=== PATIENT | male | born 1980 | race Caucasian/White ===

== ENCOUNTER 2019-10-09 17:32 | Emergency (ER) | payer SELFPAY ==
[2019-10-09 18:01] VITALS: BP 128/90; PULSE 88; RESP 18; TEMP 36.6; O2SAT 97; BMI 28.7
--- NOTE | 2019-10-09 19:38 | W.ED.GENADLT ---
HPI - General Adult General: Chief complaint: General Medical Stated complaint: chills, sore throat, sinus tenderness Time Seen by Provider: 10/09/19 19:13 History of Present Illness: HPI narrative: Sore throat sinus pressure and congestion. MD complaint: uri Onset (ago): day(s) (1) Associated symptoms: Reports no associated symptoms; Deny chest pain, dyspnea, headache(s), nausea, rash or vomiting Treatments prior to arrival: none Review of Systems Const: Denies: fever, chills or body aches Eyes: Denies: change in vision or blurry vision ENMT: Reports: throat pain and nasal congestion Card: Denies: chest pain or shortness of breath on exertion Resp: Denies: shortness of breath, productive cough or non-productive cough GI: Denies: abdominal pain, nausea or vomiting : Denies: difficulty urinating Musc: Denies: extremity pain Skin/Breast: Denies: rash Neuro: Denies: headache Psych: Denies: anxiety or depression Celso/Lymph: Denies: easy bruising PFSH ED PFSH: Social History Smoking and tobacco status: current every day smoker Physical Exam Const: COMMON NORMALS: no apparent distress, average body habitus and oriented x3 HENMT: COMMON NORMALS: normocephalic HEAD & SCALP: normal to inspection and normocephalic FACE & SINUS: sinus tenderness Eye: COMMON NORMALS: conjunctivae normal GENERAL EYE: normal appearance of both eyes CONJUNCTIVA: Yes conjunctivae normal Neck/C-Spine: COMMON NORMALS: no JVD Chest: COMMONS NORMALS: inspection of chest normal Resp: COMMON NORMALS: normal respiratory effort and clear to auscultation bilaterally AUSCULTATION: clear to auscultation bilaterally Cardio: COMMON NORMALS: no JVD, regular rate and regular rhythm RATE: regular rate RHYTHM: regular rhythm GI: COMMON NORMALS: normal to inspection, nondistended, normoactive bowel sounds Extremity: COMMON NORMALS: normal to inspection and full ROM Neuro: COMMON NORMALS: oriented x3 Course Vital Signs: Vital signs: Vital Signs Temperature 98 F 10/09/19 18:01 Pulse Rate 88 10/09/19 18:01 Respiratory Rate 18 10/09/19 18:01 Blood Pressure 128/90 10/09/19 18:01 Pulse Oximetry 97 02/15/20 18:01 Coding Level of Care Code ED Photographic Laboratory Technician for Pamela Childers
[2019-10-09 19:42] VITALS: BP 118/63; PULSE 80; RESP 18; TEMP 36.6; O2SAT 97
[2019-10-09 19:54] LABS: Influenza A by IFA Negative (Negative); Influenza B by IFA Negative (Negative)
[2019-10-09 19:56] LABS: Rapid Strep A Test Negative (Negative)
[2019-10-09 20:29] VITALS: BP 118/63; PULSE 80; RESP 16; TEMP 36.4; O2SAT 98
[2019-10-09] MEDS: amoxicillin 500 mg Capsule PO (20:29)
== END 2019-10-09 20:30 | disposition home or self-care (01) ==
PROVIDERS: Emergency Provider Nurse Practitioner Family; Family Provider Nurse Practitioner
DX: J02.9 Acute pharyngitis, unspecified (principal); R09.81 Nasal congestion; F17.200 Nicotine dependence, unspecified, uncomplicated
CPT/HCPCS: 87081; 87804; 87880; 99281; 99283

== ENCOUNTER 2020-03-21 17:29 | Emergency (ER) | payer SELFPAY ==
[2020-03-21 17:42] VITALS: BMI 28.7
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
[2020-03-21 18:05] LABS: Basophils % 0.4 %; Eosinophils # 0.3 10^3/uL (0.0-0.8); Eosinophils % 3.3 %; Hematocrit 47.5 % (42.0-52.0); Hemoglobin 15.8 g/dL (11.7-16.6); Lymphocytes # 2.7 10^3/uL (0.8-4.8); Lymphocytes % 33.6 %; Mean Corpuscular HGB Conc 33.3 g/dL (30.0-36.0); Mean Corpuscular Hemoglobin 32.2 pg (28.0-34.0); Mean Corpuscular Volume 96.9 fL (80-94); Mean Platelet Volume 11.1 fL (7.4-10.4); Monocytes % 12.7 %; Neutrophils # 4.04 10^3/uL (1.8-7.7); Neutrophils % 49.8 %; Nucleated Red Blood Cells % 0 %; Platelet Count 205 10^3/cmm (130-400); Red Cell Distribution Width 13.1 % (12.1-15.1); White Blood Count 8.1 10^3/uL (4.0-10.0)
[2020-03-21] MEDS: iohexol 300 mg/mL 100 mL Btl IV (18:15)
[2020-03-21 18:48] LABS: Alanine Aminotransferase 51 U/L (0-41); Albumin Level 4.8 g/dL (3.5-5.2); Alkaline Phosphatase 69 IU/L (40-130); Anion Gap 14.9 (5-19); Aspartate Amino Transferase 33 U/L (0-40); Blood Urea Nitrogen 18 mg/dL (6-20); Calcium 9.6 mg/dL (8.5-10.5); Carbon Dioxide 25 mmol/L (22-29); Chloride 101 mmol/L (98-107); Creatinine Clr Calc Pharmacy 122.3554; Globulin 2.2 g/dL (1.3-4.6); Glucose 85 mg/dL (65-115); Osmolality Calculated 280 mOsm/kg (285-295); Potassium 3.9 mmol/L (3.5-5.1); Sodium 137 mmol/L (136-145); Total Bilirubin 0.3 mg/dL (0.15-1.2)
[2020-03-21 18:58] LABS: Add Urine Microscopic? NO
[2020-03-21 19:01] LABS: Urine Appearance Clear (CLEAR); Urine Color Yellow (Yellow)
[2020-03-21 19:02] LABS: Bilirubin Urine Neg (NEGATIVE); Blood Urine Neg (Negative); Glucose Urine UA 1+ (Normal); Ketones Urine Negative (Negative); Leukocyte Esterase Urine Negative (Negative); Nitrate Urine Negative (Negative); Protein Urine Neg (Negative); Urobilinogen Urine Neg (Negative); pH Urine 5 (5-7)
--- NOTE | 2020-03-21 19:03 | PC.NURSE ---
patient report received from VIRIDIANA IBARRA and care transferred to VIRIDIANA Marc
[2020-03-21 19:14] VITALS: BP 139/82; BP 139/83; PULSE 72; RESP 16; RESP 18; O2SAT 97
--- NOTE | 2020-03-23 12:00 | PC.SOCIAL ---
Spoke with patient yesterday regarding referral for primary care. He was seeing Sarha at [facility] [place] and is agreeable to return to this clinic. Called Celia there today and appointment made for March at 9am. Called patient to update him of date and time of appointment. No further questions voiced and patient was appreciative.
--- NOTE | 2020-05-05 15:49 | DCPLANNER ---
Patient had a follow up appointment with Dr. Moreno on 04.10.20 at [facility], patient did attend the appointment.
== END 2020-03-21 19:19 | disposition home or self-care (01) ==
PROVIDERS: Emergency Provider Physician Assistant; PCP Nurse Practitioner
DX: R10.9 Unspecified abdominal pain (principal); F17.210 Nicotine dependence, cigarettes, uncomplicated
CPT/HCPCS: 12345; 36415; 74177; 80053; 81003; 85025; 99282; 99283; Q9967

== ENCOUNTER → 2021-05-03 14:38 | Outpatient (BNVA) | payer OTHER, SELFPAY | PROVIDERS: PCP Nurse Practitioner; Visit Provider Nurse Practitioner Family | DX: Z20.822 Contact with and (suspected) exposure to COVID-19 (principal) | CPT/HCPCS: 87426; 87635 ==

== ENCOUNTER 2021-06-11 10:27 | Emergency (ER) | payer OTHER, SELFPAY ==
[2021-06-11 10:33] VITALS: BP 143/90; PULSE 91; RESP 18; TEMP 36.8; O2SAT 98; BMI 29.4
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
[2021-06-11] MEDS: HYDROcodone-acetaminophen 5-325 mg Tablet 1 TAB PO (11:05)
[2021-06-11 12:42] LABS: Amphetamines Screen Urine Negative (Negative); Barbiturates Screen Urine Negative (Negative); Benzodiazepines Screen Urine Negative (Negative); Cocaine Screen Urine Negative (Negative); Opiate Screen Urine Positive (Negative); PCP Screen Urine Negative (Negative); THC Screen Urine Negative (Negative)
== END 2021-06-11 12:30 | disposition home or self-care (01) ==
PROVIDERS: Emergency Provider Physician Assistant; PCP Family Medicine
DX: S90.31XA Contusion of right foot, initial encounter (principal); F17.210 Nicotine dependence, cigarettes, uncomplicated; V53.5XXA Driver of pick-up truck or van injured in collision with car, pick-up truck or van in traffic accident, initial encounter
CPT/HCPCS: 70450; 72125; 73630; 80306; 99283; E0114

== ENCOUNTER 2021-06-12 09:06 | Emergency (ER) | payer OTHER, SELFPAY ==
[2021-06-12 09:27] VITALS: BP 135/88; PULSE 74; RESP 16; TEMP 36.8; O2SAT 98; BMI 29.4
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
[2021-06-12] MEDS: HYDROcodone-acetaminophen 5-325 mg Tablet 1 TAB PO (10:43)
[2021-06-12] MEDS: calcium carbonate 500 mg Chew Tablet 1000 MG PO (11:27)
[2021-06-12 11:43] VITALS: BP 139/86; PULSE 78; RESP 18; O2SAT 98
== END 2021-06-12 11:40 | disposition home or self-care (01) ==
PROVIDERS: Emergency Provider Physician Assistant; PCP Family Medicine
DX: S50.02XA Contusion of left elbow, initial encounter (principal); R07.81 Pleurodynia; F17.210 Nicotine dependence, cigarettes, uncomplicated; V89.2XXA Person injured in unspecified motor-vehicle accident, traffic, initial encounter
CPT/HCPCS: 71101; 73080; 99283

== ENCOUNTER → 2022-07-26 16:50 | Outpatient (BNVA) | payer SELFPAY | PROVIDERS: PCP Family Medicine; Visit Provider Family Medicine | DX: K21.9 Gastro-esophageal reflux disease without esophagitis (principal); K52.9 Noninfective gastroenteritis and colitis, unspecified | CPT/HCPCS: 80053; 80061; 85025; 87338 ==

== ENCOUNTER 2022-10-02 16:40 | Outpatient (CLI) | payer OTHER, SELFPAY ==
--- NOTE | 2022-10-02 16:54 | XR_ITS ---
WS: [id number] XR chest 2V* [id number] REASON FOR EXAM: REGULATED PROGRAM MONITORING FINDINGS: Moderate tortuosity of the thoracic aorta. Normal heart size. Calcified granulomatous disease bilaterally. No active pulmonary parenchymal or pleural disease. Mild changes of degenerative spondylosis in the mid and lower thoracic spine. The chest is unchanged compared to 06/12/2021. XR/XR chest 2V* [id number] IMPRESSION: Stable chest with no acute/subacute abnormality.
== END 2022-10-02 16:41 | disposition home or self-care (01) ==
LOC: RAD 16:43
PROVIDERS: PCP Family Medicine; Visit Provider Preventive Medicine Occupational Medicine
DX: Z13.6 Encounter for screening for cardiovascular disorders (principal)
CPT/HCPCS: 71046

== ENCOUNTER → 2023-03-10 15:31 | Outpatient (BNVA) | payer OTHER, SELFPAY | PROVIDERS: PCP Family Medicine; Visit Provider Family Medicine | DX: M79.672 Pain in left foot (principal) | CPT/HCPCS: 73630 ==

== ENCOUNTER → 2023-03-17 14:33 | Outpatient (BNVA) | payer OTHER, SELFPAY | PROVIDERS: PCP Family Medicine; Visit Provider Podiatrist Foot & Ankle Surgery | DX: S99.922A Unspecified injury of left foot, initial encounter (principal); W22.8XXA Striking against or struck by other objects, initial encounter | CPT/HCPCS: 73630 ==

== ENCOUNTER 2023-03-17 16:10 | Outpatient (CLI) | payer OTHER, SELFPAY | END 2023-03-17 16:11 | disposition home or self-care (01) | LOC: SPT 16:10 | PROVIDERS: PCP Family Medicine; Visit Provider Podiatrist Foot & Ankle Surgery | DX: Z46.89 Encounter for fitting and adjustment of other specified devices (principal); S99.922D Unspecified injury of left foot, subsequent encounter; X58.XXXD Exposure to other specified factors, subsequent encounter | CPT/HCPCS: 97760; L4361 ==

== ENCOUNTER 2023-03-20 06:19 | Outpatient (CLI) | payer OTHER, SELFPAY ==
--- NOTE | 2023-03-20 06:30 | CT_ITS ---
WS: [id number] CT LEFT FOOT, NONCONTRAST HISTORY: Lisfranc fracture Technique: All CT scans at [facility] use at least one of these dose optimization techniques: automated exposure control; mA and/or kV adjustment per patient size (includes targeted exams where dose is matched to clinical indication); or iterative reconstruction. DLP: 130.78 mGy.cm COMPARISON: 03/17/2023 No foot fracture or displacement is identified. Normal alignment at the Lisfranc joint. The ligament would be better assessed by MRI. No cystic changes or displacement of the tarsals. No erosions in the metatarsal heads. Normal calcaneus and talus. There is a well ossified osseous density along the dorsal foot at the level of the medial cuneiform. This appears to be a focal hooklike osteophyte measuring 7 mm. No adjacent soft tissue edema. No frac tures. Enthesopathy Achilles tendon. CT/CT foot LT wo con* [id number] IMPRESSION: 1. No acute fractures LEFT foot. 2. Hooklike osteophyte along the dorsal surface of the foot at the level of th e medial most cuneiform. Osteophyte measures 7 mm. 3. No widening of the Lisfranc joint.
== END 2023-03-20 06:20 | disposition home or self-care (01) ==
PROVIDERS: PCP Family Medicine; Visit Provider Podiatrist Foot & Ankle Surgery
DX: M79.672 Pain in left foot (principal); M25.775 Osteophyte, left foot; S93.325A Dislocation of tarsometatarsal joint of left foot, initial encounter; X58.XXXA Exposure to other specified factors, initial encounter
CPT/HCPCS: 73700

== ENCOUNTER 2024-02-09 22:14 | Emergency (ER) | payer OTHER, SELFPAY ==
[2024-02-09 22:20] VITALS: BP 139/77; PULSE 80; RESP 16; TEMP 36.3; O2SAT 97
[2024-02-09 22:53] LABS: Basophils # 0.1 10^3/uL (0.0-0.1); Basophils % 0.5 %; Eosinophils # 0.3 10^3/uL (0.0-0.8); Eosinophils % 2.8 %; Lymphocytes # 2.5 10^3/uL (0.8-4.8); Lymphocytes % 25.8 %; Mean Corpuscular HGB Conc 37.5 g/dL (30-55); Mean Corpuscular Hemoglobin 33.4 pg (27-33); Mean Corpuscular Volume 89.1 fl (82-101); Mean Platelet Volume 10.8 fL (7.4-10.4); Monocytes # 0.7 10^3/uL (0.2-0.9); Monocytes % 7.4 %; Neutrophils # 5.99 10^3/uL (1.8-7.7); Neutrophils % 63.3 %; Nucleated Red Blood Cells % 0 %; Platelet Count 197 10^3/cmm (157-399); Red Blood Count 4.49 10^6/uL (3.85-5.65); White Blood Count 9.48 10^3/uL (3.29-11.43)
--- NOTE | 2024-02-09 22:58 | CTR_ITS ---
PROCEDURE INFORMATION: Exam: CT Abdomen And Pelvis With Contrast Exam date and time: 02/09/2024 11:37 PM Age: 44 years old Clinical indication: Abdominal pain; Additional info: Rlq abd pain, known hernia, worse pain when lifting today TECHNIQUE: Imaging protocol: Computed tomography of the abdomen and pelvis with contrast. Radiation optimization: All CT scans at this facility use at least one of these dose optimization techniques: automated exposure control; mA and/or kV adjustment per patient size (includes targeted exams where dose is matched to clinical indication); or iterative reconstruction. Contrast material: OMNI 350; Contrast volume: 100 ml; Contrast route: INTRAVENOUS (IV); COMPARISON: CT abdomen pelvis w con* [id number] 21/03/2020 18:08 RADIATION DOSE METRICS: Total DLP (mGy-cm): 652.5 FINDINGS: Lungs: No consolidation in the visualized lung bases. Liver: No hepatomegaly. There are no enhancing liver masses. Gallbladder and bile ducts: No calcified stones. No ductal dilation. Pancreas: Normal in size and homogeneous enhancement. No ductal dilation. Spleen: Normal. No splenomegaly. Adrenal glands: Normal. No mass. Kidneys and ureters: There is no hydronephrosis. No renal or obstructive ureteral calculi are identified. There are left parapelvic cysts as large as 2 cm. Stomach and bowel: Wall thickening of multiple bowel loops consistent with infectious, inflammatory or ischemic enteritis (coronal image 39 of series 5; axial image 35-41 of series 3). There is submucosal fat deposition in the ascending colon (a fat halo sign). The terminal ileum is involved. Moderate diverticulosis is present in the left colon without acute diverticulitis. Appendix: A normal appendix is identified. Intraperitoneal space: No free air. No significant fluid collection. Vasculature: There is no abdominal aortic aneurysm. Lymph nodes: No enlarged retroperitoneal or mesenteric lymph nodes. Urinary bladder: The bladder shows a normal contour and is free of calcific opacities. Reproductive: Unremarkable as visualized. Bones/joints: No acute fracture. Soft tissues: There are small bilateral nonobstructing inguinal hernias containing adipose tissue and soft tissues, not bowel. CT/CT abdomen pelvis w con* [id number] IMPRESSION: 1. Wall thickening of multiple bowel loops consistent with infectious, inflammatory or ischemic enteritis. 2. Submucosal fat deposition in the ascending colon (a fat halo sign). The terminal ileum is involved. This may be seen in chronic colitis, particularly inflammatory bowel disease such as Crohn disease. It may also be seen in asymptomatic obese patients. Presently, there is no pericolonic inflammatory stranding. 3. Moderate diverticulosis of the distal colon without diverticulitis.
[2024-02-09] MEDS: ketorolac 30 mg/mL INJ IVP (23:06)
--- NOTE | 2024-02-09 23:14 | ED_ITS ---
HPI - Abdominal Pain 2 General: Chief Complaint: Abdominal Pain Stated Complaint: tore hernia at work Time Seen by Provider: 02/09/24 22:41 History of Present Illness: Presents to the ER with complaints of worsening right lower quadrant abdominal pain from a known hernia. Patient was trying to turn a big lift cylinder at work and he immediately felt a tear in his right lower quadrant where his hernia was noted to be. Patient said he noticed a bulge that is bigger than normal at that time. Patient continued to work throughout the day and came here to be checked out. Patient said the bulge went down. Patient does not take anything for pain. Patient says he has multiple hernias in his abdomen and left groin. Patient noticed slight improvement in pain when he puts pressure over this area. Slight worsening of pain when he strains. Review of Systems 2 General: Reports: 10 or more systems reviewed and unremarkable except in HPI and below PFSH ED 2 PFSH: Medical History Alcoholism in remission History of gastritis Diverticulosis Family history of brain aneurysm Surgical History History of esophagogastroduodenoscopy (EGD) Social History Smoking and tobacco/nicotine status: current every day tobacco/nicotine user cigarettes [ Other cigarette details: currently at almost a pack a day] Quit status (tobacco/nicotine): has tried quititng Number of times tried to quit tobacco: 5 Second hand smoke exposure: No Alcohol intake: former Year of sobriety/quit date alcohol: 3yrs Substance/Drug Use: never Lives independently: Yes Marital status: Current occupational status: unemployed Current gender identity: Male Physical Exam 2 Const: COMMON NORMALS: no acute distress, average body habitus, patient oriented x3, no limitations, healthy appearing, alert and well nourished Neck/C-Spine: COMMON NORMALS: no JVD Chest: COMMONS NORMALS: normal inspection of the chest and normal palpation of entire chest wall Resp: COMMON NORMALS: normal respiratory effort, No retractions, No use of accessory muscles and clear to auscultation bilaterally AUSCULTATION: clear to auscultation bilaterally Cardio: COMMON NORMALS: no JVD, regular rate, regular rhythm, S1 normal heart sound present, S2 normal heart sound present, No gallops present (Cardio), No clicks present (Cardio), No murmurs present (Cardio) and No rub (Cardio) R ATE: regular rate RHYTHM: regular rhythm HEART SOUNDS: S1 normal heart sound present and S2 normal heart sound present GI: COMMON NORMALS: Normal to inspection, nondistended, normoactive bowel sounds present, Soft to palpation, No hepatosplenomegaly present and no masses; negative for non-tender (Point tenderness over right lower quadrant, possible hernial defect noted.) PALPATION: Yes Soft to palpation and Yes No hepatosplenomegaly present Neuro: COMMON NORMALS: patient oriented x3 SENSORIUM/ORIENTATION: Yes alert Course 2 Vital Signs: Vital signs: Vital Signs Temperature 97.3 F L 02/09/24 22:20 Pulse Rate 77 02/10/24 01:34 Respiratory Rate 16 02/10/24 01:34 Blood Pressure 158/88 02/10/24 01:34 Pulse Oximetry 93 02/10/24 01:34 Oxygen Delivery Me thod Room Air 02/10/24 01:34 MDM - Abdominal Pain Medical Decision Making Blood work was obtained which is essentially negative. Abdominal pelvis CT scan did not show any type of incarcerated hernia. Patient did show possible enteritis or colitis which patient knows he has. Pain was controlled with Toradol and morphine. Patient be sent home with a prescription for hydrocodone and told to follow-up with his PCP. Patient be put on light duty until then. Differential Diagnosis Unlikely abdominal pain, acute appendicitis, calculus of kidney, constipation, diverticulitis, endometriosis, gastroenteritis, pancreatitis or small bowel obstruction Medical Records I reviewed the patient's medical records. Lab Data I reviewed the patient's lab results. 02/09/24 22:50 02/09/24 23:07 Labs/Radiology: Radiology Impressions Abdomen/Pelvis CT 02/09/24 22:58 IMPRESSION: 1. Wall thickening of multiple bowel loops consistent with infectious, inflammatory or ischemic enteritis. 2. Submucosal fat deposition in the ascending colon (a fat halo sign). The terminal ileum is involved. This may be seen in chronic colitis, particularly inflammatory bowel disease such as Crohn disease. It may also be seen in asymptomatic obese patients. Presently, there is no pericolonic inflammatory stranding. 3. Moderate diverticulosis of the distal colon without diverticulitis. Laboratory Results WBC 9.48 10^3/uL (3.29-11.43) 02/09/24 22:50 RBC 4.49 10^6/uL (3.85-5.65) 02/09/24 22:50 Hgb 15.00 g/dL (11.27-16.99) 02/09/24 22:50 Hct 40.0 % (37-53) 02/09/24 22:50 MCV 89.1 fl (82-101) 02/09/24 22:50 MCH 33.4 pg (27-33) H 02/09/24 22:50 MCHC 37.5 g/dL (30-55) 02/09/24 22:50 RDW 19.0 % (12.1-15.1) H 02/09/24 22:50 Plt Count 197 10^3/cmm (157-399) 02/09/24 22:50 MPV 10.8 fL (7.4-10.4) H 02/09/24 22:50 Neut % (Auto) 63.3 % 02/09/24 22:50 Lymph % (Auto) 25.8 % 02/09/24 22:50 Bacon % (Auto) 7.4 % 02/09/24 22:50 Eos % (Auto) 2.8 % 02/09/24 22:50 Baso % (Auto) 0.5 % 02/09/24 22:50 Neut # (Auto) 5.99 10^3/uL (1.8-7.7) 02/09/24 22:50 Lymph # (Auto) 2.5 10^3/uL (0.8-4.8) 02/09/24 22:50 Bacon # (Auto) 0.7 10^3/uL (0.2-0.9) 02/09/24 22:50 Eos # (Auto) 0.3 10^3/uL (0.0-0.8) 02/09/24 22:50 Baso # (Auto) 0.1 10^3/uL (0.0-0.1) 02/09/24 22:50 Nucleated RBC % (auto) 0 % 02/09/24 22:50 Nucleated RBCs # 0.0 /100WBC 02/09/24 22:50 Sodium 140 mmol/L (136-145) 02/09/24 23:07 Potassium 3.7 mmol/L (3.5-5.1) 02/09/24 23:07 Chloride 102 mmol/L (98-107) 02/09/24 23:07 Carbon Dioxide 28 mmol/L (22-29) 02/09/24 23:07 Anion Gap 13.7 (5-19) 02/09/24 23:07 BUN 18 mg/dL (6-20) 02/09/24 23:07 Creatinine 1.0 mg/dL (0.7-1.2) 02/09/24 23:07 GFR Calculation 80.8 mL/min (90-130) L 02/09/24 23:07 Glucose 89 mg/dL (65-115) 02/09/24 23:07 Calculated Osmolality 291 mOsm/kg (285-295) 02/09/24 23:07 Lactic Acid 1.2 mmol/L (0.5-2.2) 02/09/24 23:47 Calcium 8.9 mg/dL (8.5-10.5) 02/09/24 23:07 Total Bilirubin 0.2 mg/dL (0.15-1.2) 02/09/24 23:07 AST 17 U/L (0-40) 02/09/24 23:07 ALT 18 U/L (0-41) 02/09/24 23:07 Alkaline Phosphatase 62 U/L (40-130) 02/09/24 23:07 Total Protein 6.2 g/dL (6.6-8.7) L 02/09/24 23:07 Albumin 4.0 g/dL (3.5-5.2) 02/09/24 23:07 Globulin 2.2 g/dL (1.3-4.6) 02/09/24 23:07 Lipase 28 U/L (13-60) 02/09/24 23:07 All radiology interpretation(s) finalized by discharge Discharge Plan Discharge Patient Disposition: Home Clinical Impression: Abdominal pain, acute, right lower quadrant, Abdominal hernia Condition: Stable Prescriptions: New hydrocodone-acetaminophen 5-325 mg tablet 1 tab PO Q6H PRN (Reason: pain) Qty: 14 0RF No Action sildenafil 25 mg tablet 25 mg PO DAILY PRN (Reason: sexual activity) 30 Days Qty: 30 0RF Rx Instructions: administer 30 minutes to 4 hours before activity run through [employer] (DME) CAM Boot See Rx Instructions .Route .MEDSUPPLY Qty: 1 0RF Rx Instructions: As directed mupirocin 2 % ointment 1 applic topical TID Qty: 22 0RF Proctofoam HC 1-1 % foam 1 applic WI QID PRN (Reason: hemorrhoids) Qty: 10 0RF bupropion HCl [Wellbutrin XL] 300 mg tablet extended release 24 hr 300 mg PO QAM Qty: 90 1RF nicotine 14 mg/24 hr patch 24 hour 1 patch transdermal DAILY Qty: 28 4RF Discharge Orders: Discharge ED (Routine); Ordered 02/10/24 Ordered By: Charles Montana Referrals: Kurt Cota MD [Primary Care Provider] - 1 week Patient Instructions: Abdominal Pain (ED), Opioid Safety, Pain Management Activity Restrictions/Additional Instructions: Please follow-up with your family practice physician as you may benefit from being referred to a general surgeon to fix these hernias otherwise they may continue to get worse. 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
[2024-02-09 23:29] LABS: Alanine Aminotransferase 18 U/L (0-41); Alkaline Phosphatase 62 U/L (40-130); Anion Gap 13.7 (5-19); Aspartate Amino Transferase 17 U/L (0-40); Blood Urea Nitrogen 18 mg/dL (6-20); Calcium 8.9 mg/dL (8.5-10.5); Carbon Dioxide 28 mmol/L (22-29); Chloride 102 mmol/L (98-107); Creatinine Clr Calc Pharmacy 103.2771; Globulin 2.2 g/dL (1.3-4.6); Glomerular Filtration Rate 80.8 mL/min (90-130); Glucose 89 mg/dL (65-115); Lipase 28 U/L (13-60); Osmolality Calculated 291 mOsm/kg (285-295); Potassium 3.7 mmol/L (3.5-5.1); Sodium 140 mmol/L (136-145); Total Bilirubin 0.2 mg/dL (0.15-1.2); Total Protein 6.2 g/dL (6.6-8.7)
[2024-02-09] MEDS: iohexol 350 mg/mL 500 mL Btl (per mL) IV (23:40)
[2024-02-09 23:53] VITALS: PULSE 73; O2SAT 95
[2024-02-10] MEDS: ondansetron 2 mg/ML SDV 2 mL 4 MG IVP (00:03)
[2024-02-10 00:04] VITALS: RESP 15
[2024-02-10] MEDS: morphine 4 mg/mL SDV 1 mL IVP (00:04)
[2024-02-10 00:08] VITALS: PULSE 72; RESP 15; O2SAT 94
[2024-02-10 00:11] LABS: Lactic Sepsis W/Reflex 1.2 mmol/L (0.5-2.2)
[2024-02-10 01:34] VITALS: BP 158/88; PULSE 77; RESP 16; O2SAT 93
[2024-02-10 02:52] VITALS: BP 131/90; PULSE 68; O2SAT 93
== END 2024-02-10 02:53 | disposition home or self-care (01) ==
PROVIDERS: Emergency Medicine; Emergency Provider Emergency Medicine; PCP Family Medicine
DX: R10.31 Right lower quadrant pain (principal); K46.9 Unspecified abdominal hernia without obstruction or gangrene; F17.210 Nicotine dependence, cigarettes, uncomplicated
CPT/HCPCS: 74177; 80053; 83605; 83690; 85025; 96374; 96375; 99285; J1885; J2270; J2405; Q9967

== ENCOUNTER 2024-03-29 05:41 | Day surgery (SDC) | payer OTHER, SELFPAY ==
[2024-03-29] VITALS (12 sets, daily range): BP systolic 121–150; BP diastolic 83–95; PULSE 74–92; RESP 14–29; TEMP 36.2–36.9; O2SAT 94–99
--- NOTE | 2024-03-29 06:01 | W.PM.OPSUD ---
Surgery/Procedure H&P Update DATE OF PROCEDURE: March 29, 2024 DATE H&P PERFORMED: 03/10/24 H&P UPDATE INFORMATION: I have reviewed H&P completed within last 30 days, I have examined patient prior to procedure, No changes to prior documentation and H&P is in [facility] EMR on date indicated PLANNED PROCEDURE: Operation Date: 03/29/24 07:00 Proposed Procedures p Laparoscopic Inguinal Hernia Repair with Mesh, possible [place] [address], K40.90(Right) - Enrike Quinteros MD
[2024-03-29] MEDS: sodium chloride 0.9% 1,000 ML 30 ML IV (06:11)
--- NOTE | 2024-03-29 06:54 | ANES.PREANE2 ---
Pre-Anesthetic Assessment Height/Weight: Height 1.78 m Weight 86.183 kg Temp Pulse Resp BP Pulse Ox O2 Del Method 98.4 F 74 16 124/85 97 Room Air 03/29/24 05:59 03/29/24 05:59 03/29/24 05:59 03/29/24 05:59 03/29/24 05:59 03/29/24 05:59 Operation Date: 03/29/24 07:00 Proposed Procedures p Laparoscopic Inguinal Hernia Repair with Mesh, possible open [id number], K40.90(Right) - Enrike Quinteros MD Familial anesthetic complications: none Was Beta Nany taken within 24 hours: N/A Was Clonidine taken within 24 hours: N/A Last intake: Intake Last Liquid Date 03/28/24 Last Liquid Time 00:00 Last Solid Date 03/28/24 Last Solid Time 20:00 Social Tobacco and No alcohol (H/O ETOH abuse) Exam alert, oriented x 3 and regular rate & rhythm Airway Submandibular: within normal limits Cervical ROM: within normal limits Mallampati: Class II Dentition: chipped Pulmonary Chronic Obstructive Pulmonary Disease GI Gastroesophageal Reflux Disease [place] [facility] [place] Osteoarthritis/DJD Neuropsych Anxiety and Depression Anesthetic Plan ASA status: 3 Medications/Allergies Home Medications Medication Instructions Recorded Confirmed Last Taken Type bupropion HCl 300 mg 24 hr tablet, 300 mg PO QAM #90 tabs 03/09/24 03/29/24 Unknown Rx extended release (Wellbutrin XL) sildenafil 25 mg tablet 25 mg PO DAILY PRN sexual activity 03/09/24 03/29/24 Unknown Rx 30 days #30 tabs meloxicam 15 mg tablet 15 mg PO DAILY 7 days #7 tabs 03/10/24 03/29/24 Unknown Rx Allergies Allergy/AdvReac Type Severity Reaction Status Date / Time levofloxacin [From Levaquin] Allergy ALGY-Anaphy Verified 03/26/24 14:23 laxis Current Medications Generic Name Dose Route Start Last Admin Trade Name Freq PRN Reason Stop Dose Admin Sodium Chloride 1,000 mls @ 30 mls/hr 03/29/24 05:45 03/29/24 06:11 Sodium Chloride 0.9% IV 03/30/24 05:44 30 mls/hr .Q24H ADDIS Administration PFSH Anesthesia Medical History Alcoholism in remission History of gastritis Diverticulosis Family history of brain aneurysm Surgical History History of esophagogastroduodenoscopy (EGD) Social History Smoking and tobacco/nicotine status: current every day tobacco/nicotine user cigarettes [ Other cigarette details: currently at almost a pack a day] Quit status (tobacco/nicotine): has tried quititng Number of times tried to quit tobacco: 5 Second hand smoke exposure: No Alcohol intake: former Year of sobriety/quit date alcohol: 3yrs Substance/Drug Use: never Lives independently: Yes Marital status: Current occupational status: unemployed Current gender identity: Male Data Anesthesia Cardiac Studies: No Data to Display
[2024-03-29] MEDS: ceFAZolin 2,000 mg SDV 2000 MG IVP (06:59)
[2024-03-29] MEDS: lidocaine-epi 1% 20 mL INJ INJECTION (08:19)
[2024-03-29] MEDS: BUPivacaine 0.25% INJ 10 mL INJECTION (08:19)
--- NOTE | 2024-03-29 08:46 | P.OP_ITS ---
Operative Report Date of procedure: March 29, 2024 Pre-op diagnosis: Right inguinal hernia Post-op diagnosis: Right inguinal hernia, indirect Post-op findings: There was a indirect right inguinal hernia containing preperitoneal fat, there was a lipoma of the cord. Procedure done: Laparoscopic repair of right inguinal hernia Implants: Large right 3D max mesh Surgeon: Enrike Quinteros MD Tip Banding Machine Operator: ALINE OR STaff Estimated blood loss: 5 Complications: none Brief History: This is a 44-year-old male who presented to my office with a right groin pain and a CT scan confirming a right inguinal hernia. Will set to proceed with laparoscopic repair after discussion of all risk and benefits. Procedure: Patient was brought into the OR, he was placed in a supine position. General anesthesia was given. Timeout was conducted. Infraumbilical incision was made measuring 1.5 cm, the incision was deepened until the anterior rectus sheath of the right side was identified. The anterior rectus sheath was then opened with electrocautery and the rectus muscle retracted laterally exposing the retrorectus space. S shaped retractor was placed in the space and then a Spacemaker was advanced carefully in that the space to the level of the pubic bone. Under direct visualization the balloon from the Spacemaker was open creating the preperitoneal space. The Spacemaker was then removed and replaced with a 12 mm trocar with a balloon. Insufflation was initiated, additional 5 mm trocars were placed in the area visualization in the suprapubic and infraumbilical location. I then proceeded to dissect the preperitoneal space, the pubic bone was made visible and I dissected 2 cm below the pubic bone to allow for proper mesh placement, I then proceeded to open the lateral space of [place] on the right side, after this space was developed I then proceeded to evaluate the indirect space, at this level and indirect inguinal hernia was noted that contain only preperitoneal fat, all the preperitoneal fat was reduced and then I proceeded proceeded to individualize the cord structures, vas deferens and testicular vessels was identified and a small lipoma of the cord was noted which was also reduced. No evidence of peritoneal sac was noted. Once the hernia was completely reduced I then proceeded to place a large right- sided 3D max mesh in the space, the mesh was noted to cover the direct indirect and femoral spaces and extending to the lateral direction immediately to the symphysis pubis, it was fixed at this level with absorbable tack. I then checked the left side for evidence of hernia, the peritoneum was completely down no evidence of indirect hernia noted at this level, since patient was asymptomatic on the left side and there is no evidence of a peritoneal sac I decided not to pursue any additional dissection of the left side. The procedure was then terminated by evacuating the insufflation under direct visualization to verify appropriate mesh placement. The trocars were removed. The anterior rectus sheath was closed with #0 Vicryl, subcutaneous tissue was closed with #3- 0 Vicryl, skin was closed with #4 Monocryl. Local anesthesia was explained and Dermabond was applied. The end of the procedure all counts were correct, the patient tolerated well the procedure and was transferred to PACU in stable condition.
[2024-03-29] MEDS: fentaNYL 50 mcg/mL INJ 2mL IVP (09:10)
[2024-03-29] MEDS: oxyCODONE 5 mg IR Tab/Cap PO (09:47)
--- NOTE | 2024-03-29 09:55 | ANE.PACU2 ---
Inpatient post-anesthesia follow up: Airway intact: Yes Vital signs: Temperature 97.2 F Pulse Rate 77 Respiratory Rate 20 Blood Pressure 135/92 Pulse Oximetry 97 Oxygen Delivery Me thod Room Air Oxygen Flow Rate 8 Fraction of Inspir ed Oxygen Hydration adequate: Yes Nausea and vomiting: No Pain level: 4 Mental status: Baseline
== END 2024-03-29 10:20 | disposition home or self-care (01) ==
PROVIDERS: PCP Family Medicine; Visit Provider Surgery
PROC: (CPT 49650; principal; 2024-03-29 07:00)
DX: K40.90 Unilateral inguinal hernia, without obstruction or gangrene, not specified as recurrent (principal); D17.6 Benign lipomatous neoplasm of spermatic cord; J44.9 Chronic obstructive pulmonary disease, unspecified; K21.9 Gastro-esophageal reflux disease without esophagitis; F17.210 Nicotine dependence, cigarettes, uncomplicated
CPT/HCPCS: 49650; C1781; J0330; J0690; J1100; J1170; J2250; J2405; J2704; J2710; J3010; J3490; J7030

== ENCOUNTER 2024-04-09 17:44 | Emergency (ER) | payer OTHER, SELFPAY ==
[2024-04-09 17:51] VITALS: BP 140/92; PULSE 92; RESP 18; TEMP 36.7; O2SAT 95; BMI 28.1
--- NOTE | 2024-04-09 17:52 | CTR_ITS ---
PROCEDURE INFORMATION: Exam: CT Head Without Contrast Exam date and time: 04/09/2024 6:06 PM Age: 44 years old Clinical indication: Stroke-like symptoms; Visual disturbance; Additional info: Vision changes TECHNIQUE: Imaging protocol: Computed tomography of the head without contrast. Radiation optimization: All CT scans at this facility use at least one of these dose optimization techniques: automated exposure control; mA and/or kV adjustment per patient size (includes targeted exams where dose is matched to clinical indication); or iterative reconstruction. Other technique: STROKE PROTOCOL was implemented. COMPARISON: CT head wo con* [id number] 06/11/2021 10:56 AM RADIATION DOSE METRICS: Total DLP (mGy-cm): 1030.64 FINDINGS: Brain: No hemorrhage. No edema. Mild hypoattenuation of the subcortical white matter which could reflect sequela of early chronic small vessel ischemic disease. No mass effect. Cerebral ventricles: No ventriculomegaly. Paranasal sinuses: Visualized sinuses are unremarkable. No fluid levels. Mastoid air cells: Visualized mastoid air cells are well aerated. Bones: Unremarkable. No acute fracture. Soft tissues: Unremarkable. CT/CT head thrombolytic [id number] IMPRESSION: No acute intracranial abnormality. ASSESSMENT: ASPECTS ([place] Stroke Program Early CT Score) is 10.
--- NOTE | 2024-04-09 18:10 | W.ED.NEUROSD ---
HPI - Neuro Symptoms/Deficit General: Chief Complaint: Neuro Symptoms/Deficit Stated Complaint: Stoke Like Symptoms Time Seen by Provider: 04/09/24 18:05 History of Present Illness: 44-year-old man with a history of recent hernia repair surgery who presents emergency room with blurred vision today. He says he noticed this a couple days ago. He says anything out past a couple of feet appears blurry to him. No visual field deficits. No focal motor deficits. No fevers. No altered mental status. Related Data Previous Rx's Medication Instructions Recorded bupropion HCl 300 mg 24 hr tablet, 300 mg PO QAM #90 tabs 03/09/24 extended release (Wellbutrin XL) sildenafil 25 mg tablet 25 mg PO DAILY PRN sexual activity 03/09/24 30 days #30 tabs gabapentin 100 mg capsule 100 mg PO TID 3 weeks #63 caps 04/07/24 oxycodone 5 mg capsule 5 mg PO Q8H PRN pain 5 days #14 04/07/24 caps Allergies Allergy/AdvReac Type Severity Reaction Status Date / Time levofloxacin [From Levaquin] Allergy ALGY-Anaphy Verified 04/09/24 18:03 laxis Review of Systems Narrative: Constitutional symptoms: Negative except as documented in HPI. Skin symptoms: Negative except as documented in HPI. Eye symptoms: Negative except as documented in HPI. ENMT symptoms: Negative except as documented in HPI. Respiratory symptoms: Negative except as documented in HPI. Cardiovascular symptoms: Negative except as documented in HPI. Gastrointestinal symptoms: Negative except as documented in HPI. Genitourinary symptoms: Negative except as documented in HPI. Musculoskeletal symptoms: Negative except as documented in HPI. Neurologic symptoms: Negative except as documented in HPI. Psychiatric symptoms: Negative except as documented in HPI. Endocrine symptoms: Negative except as documented in HPI. PFSH ED PFSH: Medical History Alcoholism in remission History of gastritis Diverticulosis Family history of brain aneurysm Surgical History History of esophagogastroduodenoscopy (EGD) Social History Smoking and tobacco/nicotine status: current every day tobacco/nicotine user cigarettes [ Other cigarette details: currently at almost a pack a day] Quit status (tobacco/nicotine): has tried quititng Number of times tried to quit tobacco: 5 Second hand smoke exposure: No Alcohol intake: former Year of sobriety/quit date alcohol: 3yrs Substance/Drug Use: never Lives independently: Yes Marital status: Current occupational status: unemployed Current gender identity: Male Physical Exam Narrative: EXAM NARRATIVE: General: Alert, no acute distress. Skin: Warm, dry. Psoriatic type plaques on legs bilaterally Head: Normocephalic, atraumatic. Neck: Supple, trachea midline. Eye: Extraocular movements are intact. Ears, nose, mouth and throat: Tacky oral mucosa Cardiovascular: Regular, Normal peripheral perfusion. Respiratory: Lungs are clear to auscultation, respirations are non-labored, breath sounds are equal, Symmetrical chest wall expansion. Gastrointestinal: Soft, Nontender, Non distended Musculoskeletal: Normal ROM, no deformity. Neurological: Alert and oriented, No focal neurological deficit observed. Psychiatric: Cooperative, appropriate mood & affect. Course Vital Signs: Vital signs: Vital Signs Temperature 98.0 F 04/09/24 17:51 Pulse Rate 92 04/09/24 17:51 Respiratory Rate 18 04/09/24 17:51 Blood Pressure 140/92 04/09/24 17:51 Pulse Oximetry 95 04/09/24 17:51 Oxygen Delivery Me thod Room Air 04/09/24 17:51 MDM - Neuro Symptoms/Deficit Medical Decision Making Medical decision making: Differential diagnosis including but not limited to and based on the above HPI, review of systems and physical exam: Initially there was some concern the patient might be having a stroke. Basic workup and lab work were ordered. Orders placed to evaluate differential diagnosis based on the above differential, HPI and physical exam EKG: Time 1755. Rate 86. Normal sinus rhythm, No ST-T changes, no ectopy, normal WI & QRS intervals, This was reviewed and interpreted by myself the ER physician at 1758. CT head: No acute intracranial process. no intracranial hemorrhage, no evidence of infarct. no evidence of acute fracture.This was reviewed and interpreted by myself the ER physician. Acute abdominal series: chest x-ray: No acute process. No obvious infiltrates. No pneumothorax. No cardiomegaly. This was reviewed and interpreted by myself the emergency room physician Abdomen x-ray: Nonspecific bowel gas pattern. No evidence of free air or obstruction. This was reviewed and interpreted by myself the emergency room physician. Lab Review: Laboratory results were reviewed and interpreted by myself the emergency room physician. No leukocytosis. White count is 9. No anemia. Hemoglobin is 16. No renal failure. BUN/creatinine are mildly elevated at 15 and 1.1. There is some dehydration. Fluids were ordered. Also urine was quite concentrated at 1.025. However there is no infection. This does further that he is a bit dehydrated I reviewed the patient's medical record. Reexamination: Patient remained stable. No increased work of breathing. No altered mental status. No focal motor deficits. Assessment and plan: Vision changes Dehydration ?Normal saline bolus in the emergency room - Discharged home - Discussed findings and plan with patient. Answered any questions. - All laboratory values were reviewed and interpreted personally by myself, the ER physician - All imaging was reviewed and interpreted personally by myself, the ER physician. - Evaluation and treatment of this problem were appropriate in the emergency setting Lab Data 04/09/24 18:25 04/09/24 18:[address] 04/09/24 17:52 IMPRESSION: No acute intracranial abnormality. ASSESSMENT: ASPECTS ([place] Stroke Program Early CT Score) is 10. Abdomen X-Ray 04/09/24 18:19 IMPRESSION: No acute findings. Laboratory Results WBC 9.34 10^3/uL (3.29-11.43) 04/09/24 18:25 RBC 5.14 10^6/uL (3.85-5.65) 04/09/24 18:25 Hgb 16.60 g/dL (11.27-16.99) 04/09/24 18:25 Hct 48.9 % (37-53) 04/09/24 18:25 MCV 95.1 fl (82-101) 04/09/24 18: MCH 32.3 pg (27-33) 04/09/24 18: MCHC 33.9 g/dL (30-55) 04/09/24 18:25 RDW 13.1 % (12.1-15.1) 04/09/24 18:25 Plt Count 206 10^3/cmm (157-399) 04/09/24 18: MPV 10.9 fL (7.4-10.4) H 04/09/24 18:25 Neut % (Auto) 63.7 % 04/09/24 18:25 Lymph % (Auto) 22.6 % 04/09/24 18:25 [place] % (Auto) 9.2 % 04/09/24 18:25 Eos % (Auto) 3.7 % 04/09/24 18:25 Baso % (Auto) 0.4 % 04/09/24 18:25 Neut # (Auto) 5.94 10^3/uL (1.8-7.7) 04/09/24 18:25 Lymph # (Auto) 2.1 10^3/uL (0.8-4.8) 04/09/24 18:25 [place] # (Auto) 0.9 10^3/uL (0.2-0.9) 04/09/24 18:25 Eos # (Auto) 0.4 10^3/uL (0.0-0.8) 04/09/24 18:25 Baso # (Auto) 0.0 10^3/uL (0.0-0.1) 04/09/24 18:25 Nucleated RBC % (auto) 0 % 04/09/24 18: Nucleated RBCs # 0.0 /100WBC 04/09/24 18:25 Sodium 140 mmol/L (136-145) 04/09/24 18:25 Potassium 4.1 mmol/L (3.5-5.1) 04/09/24 18:25 Chloride 103 mmol/L (98-107) 04/09/24 18:25 Carbon Dioxide 27 mmol/L (22-29) 04/09/24 18:25 Anion Gap 14.1 (5-19) 04/09/24 18:25 BUN 15 mg/dL (6-20) 04/09/24 18:25 Creatinine 1.1 mg/dL (0.7-1.2) 04/09/24 18:25 GFR Calculation 72.4 mL/min (90-130) L 04/09/24 18:25 Glucose 113 mg/dL (65-115) 04/09/24 18:25 POC Glucose 159 mg/dL (70-110) H 04/09/24 18:07 Calculated Osmolality 292 mOsm/kg (285-295) 04/09/24 18:25 Calcium 9.4 mg/dL (8.5-10.5) 04/09/24 18:25 Total Bilirubin 0.5 mg/dL (0.15-1.2) 04/09/24 18:25 AST 22 U/L (0-40) 04/09/24 18:25 ALT 29 U/L (0-41) 04/09/24 18:25 Alkaline Phosphatase 71 U/L (40-130) 04/09/24 18:25 C-Reactive Protein 3.0 mg/L (0.0-4.9) 04/09/24 18:25 Total Protein 7.0 g/dL (6.6-8.7) 04/09/24 18:25 Albumin 4.5 g/dL (3.5-5.2) 04/09/24 18:25 Globulin 2.5 g/dL (1.3-4.6) 04/09/24 18:25 Urine Color Yellow (Yellow) 04/09/24 19:16 Urine Appearance Clear (CLEAR) 04/09/24 19:16 Urine pH 5.5 (5-7) 04/09/24 19:16 Ur Specific [place] 1.025 (1.005-1.030) 04/09/24 19:16 Urine Protein Negative (Negative) 04/09/24 19:16 Urine Glucose (UA) Negative (Normal) 04/09/24 19:16 Urine Ketones Negative (Negative) 04/09/24 19:16 Urine Blood Negative (Negative) 04/09/24 19:16 Urine Nitrate Negative (Negative) 04/09/24 19:16 Urine Bilirubin Negative (Negative) 04/09/24 19:16 Urine Urobilinogen 1.0 mg/dL (Negative) 04/09/24 19:16 Ur Leukocyte Esterase Negative (Negative) 04/09/24 19:16 Urine RBC 0-2 /hpf (0-2) 04/09/24 19:16 Urine WBC 0-5 /hpf (0-5) 04/09/24 19:16 Ur Squamous Epith Cells 0-5 /hpf (0-5) 04/09/24 19:16 Amorphous Sediment Not Reportable 04/09/24 19:16 Urine Bacteria None seen /hpf (NONE) 04/09/24 19:16 Hyaline Casts 0.81 /lpf 04/09/24 19:16 All radiology interpretation(s) finalized by discharge Discharge Plan Discharge Patient Disposition: Home Clinical Impression: Vision changes, Dehydration Condition: Stable Prescriptions: No Action bupropion HCl [Wellbutrin XL] 300 mg tablet extended release 24 hr 300 mg PO QAM Qty: 90 1RF sildenafil 25 mg tablet 25 mg PO DAILY PRN (Reason: sexual activity) 30 Days Qty: 30 0RF Rx Instructions: administer 30 minutes to 4 hours before activity run through 340b oxycodone 5 mg capsule 5 mg PO Q8H PRN (Reason: pain) 5 Days Qty: 14 0RF gabapentin 100 mg capsule 100 mg PO TID 21 Days Qty: 63 0RF Discharge Orders: Discharge ED (Routine); Ordered 04/09/24 Ordered By: Tory Young Referrals: Kurt Cota MD [Primary Care Provider] - Discharge Diet: Usual diet Discharge Activity: Increase activity as tolerated Patient Instructions: Dehydration (ED) Activity Restrictions/Additional Instructions: If your vision remains blurred with your corrective glasses then I would seek evaluation by either an loss prevention/safety district manager or an dock guard. Please push fluids Thank you for choosing [facility] for your healthcare needs today. Please realize this is an emergency room and that we are providing you with a medical screening exam and this may not be complete and all inclusive of all the testing and or work up that you may need to determine your ailment or severity of your illness. You have been screened and evaluated and felt safe for discharge. Health conditions do change or evolve sometimes and as such it is important that you follow up with your Primary Doctor to be re checked, 3-5 days is a general good time frame for follow up. You are always welcome to return to the ED for re assessment if your symptoms are worsening or you have new concerns Coding Level of Care Code ED Board Certified Family Physician for Pamela Childers
[2024-04-09 18:11] LABS: Glucose Point of Care 159 mg/dL (70-110)
--- NOTE | 2024-04-09 18:16 | ECG_ITS ---
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
--- NOTE | 2024-04-09 18:19 | XRR_ITS ---
PROCEDURE INFORMATION: Exam: XR Abdomen Exam date and time: 04/09/2024 6:23 PM Age: 44 years old Clinical indication: Abdominal tenderness; Abdominal pain; Prior surgery; Surgery date: <1 month; Surgery type: Right inguinal hernia surgery; Additional info: Weakness, recent surgery TECHNIQUE: Imaging protocol: Radiologic exam of the abdomen. Views: Frontal supine view of the abdomen. 1 View. COMPARISON: CT abdomen pelvis w con* [id number] 02/09/2024 11:37 PM FINDINGS: Gastrointestinal tract: Normal. No bowel dilation. Bones/joints: Unremarkable. XR/XR abdomen 1V* [id number] IMPRESSION: No acute findings.
[2024-04-09 18:30] LABS: Basophils % 0.4 %; Eosinophils # 0.4 10^3/uL (0.0-0.8); Eosinophils % 3.7 %; Hematocrit 48.9 % (37-53); Lymphocytes # 2.1 10^3/uL (0.8-4.8); Lymphocytes % 22.6 %; Mean Corpuscular HGB Conc 33.9 g/dL (30-55); Mean Corpuscular Hemoglobin 32.3 pg (27-33); Mean Corpuscular Volume 95.1 fl (82-101); Mean Platelet Volume 10.9 fL (7.4-10.4); Monocytes # 0.9 10^3/uL (0.2-0.9); Monocytes % 9.2 %; Neutrophils # 5.94 10^3/uL (1.8-7.7); Neutrophils % 63.7 %; Nucleated Red Blood Cells % 0 %; Platelet Count 206 10^3/cmm (157-399); Red Blood Count 5.14 10^6/uL (3.85-5.65); Red Cell Distribution Width 13.1 % (12.1-15.1); White Blood Count 9.34 10^3/uL (3.29-11.43)
[2024-04-09 18:50] LABS: Alanine Aminotransferase 29 U/L (0-41); Albumin Level 4.5 g/dL (3.5-5.2); Alkaline Phosphatase 71 U/L (40-130); Anion Gap 14.1 (5-19); Aspartate Amino Transferase 22 U/L (0-40); Blood Urea Nitrogen 15 mg/dL (6-20); Calcium 9.4 mg/dL (8.5-10.5); Carbon Dioxide 27 mmol/L (22-29); Chloride 103 mmol/L (98-107); Creatinine Clr Calc Pharmacy 95.1938; Globulin 2.5 g/dL (1.3-4.6); Glomerular Filtration Rate 72.4 mL/min (90-130); Glucose 113 mg/dL (65-115); Osmolality Calculated 292 mOsm/kg (285-295); Potassium 4.1 mmol/L (3.5-5.1); Sodium 140 mmol/L (136-145); Total Bilirubin 0.5 mg/dL (0.15-1.2)
[2024-04-09 19:25] LABS: Bilirubin Urine Negative (Negative); Blood Urine Negative (Negative); Glucose Urine UA Negative (Normal); Ketones Urine Negative (Negative); Leukocyte Esterase Urine Negative (Negative); Nitrate Urine Negative (Negative); Protein Urine Negative (Negative); Specific Gravity, Urine 1.025 (1.005-1.030); Urine Appearance Clear (CLEAR); Urine Color Yellow (Yellow); pH Urine 5.5 (5-7)
[2024-04-09 19:27] LABS: Bacteria Urine None Seen /hpf; Hyaline Casts Urine 0.81 /lpf; RBC Urine 0-2 /hpf (0-2); Squamous Epithelial Cell Urine 0-5 /hpf (0-5); WBC Urine 0-5 /hpf (0-5)
[2024-04-09] MEDS: sodium chloride 0.9% 1,000 ML 999 ML IV (19:51)
[2024-04-09 20:56] VITALS: BP 164/107; PULSE 64; RESP 18; O2SAT 95
== END 2024-04-09 20:48 | disposition home or self-care (01) ==
PROVIDERS: Emergency Provider Emergency Medicine; PCP Family Medicine
DX: H53.9 Unspecified visual disturbance (principal); E86.0 Dehydration; F17.210 Nicotine dependence, cigarettes, uncomplicated
CPT/HCPCS: 36415; 36416; 70450; 74018; 80053; 81001; 82962; 85025; 86140; 93005; 96360; 99285; J7030

== ENCOUNTER 2024-04-27 00:29 | Emergency (ER) | payer OTHER, SELFPAY ==
[2024-04-27] VITALS (29 sets, daily range): BP systolic 127–155; BP diastolic 90–110; PULSE 81–82; RESP 16–20; TEMP 36.6; O2SAT 91–100; BMI 28.1
--- NOTE | 2024-04-27 01:18 | CTR_ITS ---
PROCEDURE INFORMATION: Exam: CT Abdomen And Pelvis With Contrast Exam date and time: 04/27/2024 2:11 AM Age: 44 years old Clinical indication: Abdominal pain; Localized; Right lower quadrant (rlq); Prior surgery; Surgery date: 1-6 months; Surgery type: Recent hernia SX, mar 29, 2024; Additional info: Rlq abd pain, recent hernia repair with mesh TECHNIQUE: Imaging protocol: Computed tomography of the abdomen and pelvis with contrast. Radiation optimization: All CT scans at this facility use at least one of these dose optimization techniques: automated exposure control; mA and/or kV adjustment per patient size (includes targeted exams where dose is matched to clinical indication); or iterative reconstruction. Contrast material: OMNI 350; Contrast volume: 100 ml; Contrast route: INTRAVENOUS (IV); COMPARISON: CT abdomen pelvis w con* [id number] 02/09/2024 11:37 PM RADIATION DOSE METRICS: Total DLP (mGy-cm): 676.56 FINDINGS: Lungs: The lung bases are clear. No effusion Diaphragm: Small hiatal hernia. Liver: There is a subcentimeter low-attenuation lesion of the liver which is too small to accurately characterize but may represent a cyst. Gallbladder and biliary ducts: No wall thickening, pericholecystic fluid or stones. Pancreas: Normal. No ductal dilation. Spleen: Normal. No splenomegaly. Adrenal glands: Normal. No mass. Kidneys and ureters: There are multiple bilateral parapelvic renal cysts, largest is on the left and measures 1.6 cm. Stomach and bowel: Diverticulosis without diverticulitis. Appendix: The appendix is normal in size with no associated fat infiltration. Intraperitoneal space: Unremarkable. No free air. No significant fluid collection. Vasculature: Unremarkable. No abdominal aortic aneurysm. Lymph nodes: Unremarkable. No enlarged lymph nodes. Urinary bladder: There is urinary bladder wall thickening with pericystic fat stranding. Reproductive: Unremarkable as visualized. Bones/joints: Unremarkable. No acute fracture. Soft tissues: Unremarkable. CT/CT abdomen pelvis w con* [id number] IMPRESSION: 1. Acute cystitis. 2. Small hiatal hernia. 3. Diverticulosis without diverticulitis. 4. Normal appendix. COMMENTS: Consistent with the [employer]'s Incidental Findings Committee white paper (J Am Donya Radiol 2018): Any incidental renal lesion less than 1 cm or classified as too small to characterize, or any incidental cystic renal lesion characterized as simple-appearing, is likely benign. No follow-up imaging is recommended for these lesions per consensus recommendations based on imaging criteria.
[2024-04-27 01:33] LABS: Basophils % 0.5 %; Eosinophils # 0.3 10^3/uL (0.0-0.8); Eosinophils % 3.8 %; Lymphocytes # 2.7 10^3/uL (0.8-4.8); Mean Corpuscular Hemoglobin 32.9 pg (27-33); Mean Corpuscular Volume 96.8 fl (82-101); Mean Platelet Volume 11.4 fL (7.4-10.4); Monocytes # 0.9 10^3/uL (0.2-0.9); Monocytes % 9.7 %; Neutrophils # 4.79 10^3/uL (1.8-7.7); Neutrophils % 54.8 %; Nucleated Red Blood Cells % 0 %; Platelet Count 222 10^3/cmm (157-399); Red Blood Count 4.65 10^6/uL (3.85-5.65); Red Cell Distribution Width 13.2 % (12.1-15.1); White Blood Count 8.74 10^3/uL (3.29-11.43)
[2024-04-27] MEDS: morphine 4 mg/mL SDV 1 mL IVP (01:39)
[2024-04-27] MEDS: ondansetron 2 mg/ML SDV 2 mL 4 MG IVP (01:39)
--- NOTE | 2024-04-27 01:41 | ED_ITS ---
HPI - Abdominal Pain 2 General: Chief Complaint: Abdominal Pain Stated Complaint: Abd pain, Post hernia op 2 weeks Time Seen by Provider: 04/27/24 00:48 History of Present Illness: Patient presents to the ER after picking up his after she had a seizure tonight and reports right lower quadrant abdominal pain. Patient is approximately 2 weeks postop from a right inguinal hernia repair with mesh by Dr. Kramer is on 10 currently restriction. He was doing good up until tonight now he has sharp stabbing pain and very tender to touch all over his whole right lower quadrant. Related Data Previous Rx's Medication Instructions Recorded bupropion HCl 300 mg 24 hr tablet, 300 mg PO QAM #90 tabs 03/09/24 extended release (Wellbutrin XL) sildenafil 25 mg tablet 25 mg PO DAILY PRN sexual activity 03/09/24 30 days #30 tabs gabapentin 100 mg capsule 100 mg PO TID 3 weeks #63 caps 04/07/24 oxycodone 5 mg capsule 5 mg PO Q8H PRN pain 5 days #14 04/07/24 caps Allergies Allergy/AdvReac Type Severity Reaction Status Date / Time levofloxacin [From Levaquin] Allergy ALGY-Anaphy Verified 04/27/24 00:37 laxis Review of Systems 2 General: Reports: 10 or more systems reviewed and unremarkable except in HPI and below PFSH ED 2 PFSH: Medical History Alcoholism in remission History of gastritis Diverticulosis Family history of brain aneurysm Surgical History History of esophagogastroduodenoscopy (EGD) Social History Smoking and tobacco/nicotine status: current every day tobacco/nicotine user cigarettes [ Other cigarette details: currently at almost a pack a day] Quit status (tobacco/nicotine): has tried quititng Number of times tried to quit tobacco: 5 Second hand smoke exposure: No Alcohol intake: former Year of sobriety/quit date alcohol: 3yrs Substance/Drug Use: never Lives independently: Yes Marital status: Current occupational status: unemployed Current gender identity: Male Physical Exam 2 Const: COMMON NORMALS: no acute distress, average body habitus, patient oriented x3, no limitations, healthy appearing, alert and well nourished HENMT: COMMON NORMALS: normocephalic, atraumatic, hearing grossly normal bilaterally, external ears normal, Normal external nose present and moist oral mucous membranes HEAD & SCALP: normocephalic and atraumatic NOSE: Normal external nose present EXTERNAL EAR: Yes external ears normal Neck/C-Spine: COMMON NORMALS: no JVD Chest: COMMONS NORMALS: normal inspection of the chest and normal palpation of entire chest wall Resp: COMMON NORMALS: normal respiratory effort, No retractions, No use of accessory muscles and clear to auscultation bilaterally AUSCULTATION: clear to auscultation bilaterally Cardio: COMMON NORMALS: no JVD, regular rate, regular rhythm, S1 normal heart sound present, S2 normal heart sound present, No gallops present (Cardio), No clicks present (Cardio), No murmurs present (Cardio) and No rub (Cardio) R ATE: regular rate RHYTHM: regular rhythm HEART SOUNDS: S1 normal heart sound present and S2 normal heart sound present GI: COMMON NORMALS: Normal to inspection, nondistended, normoactive bowel sounds present, Soft to palpation, non-tender, No hepatosplenomegaly present and no masses PALPATION: Yes Soft to palpation and Yes No hepatosplenomegaly present Neuro: COMMON NORMALS: patient oriented x3 SENSORIUM/ORIENTATION: Yes alert Course 2 Vital Signs: Vital signs: Vital Signs Temperature 97.9 F 04/27/24 00:34 Pulse Rate 82 04/27/24 00:34 Respiratory Rate 20 H 04/27/24 01:39 Blood Pressure 133/94 04/27/24 02:15 Pulse Oximetry 98 04/27/24 02:23 Oxygen Delivery Me thod Room Air 04/27/24 00:34 MDM - Abdominal Pain Medical Decision Making Patient lab work done included a CT scan of the abdomen pelvis with contrast, all essentially which was benign or stable. These results was discussed with the patient. Patient be discharged home. Differential Diagnosis Likely abdominal pain Medical Records I reviewed the patient's medical records. Lab Data I reviewed the patient's lab results. 04/27/24 00:43 04/27/24 00:43 Labs/Radiology: Radiology Impressions Abdomen/Pelvis CT 04/27/24 01:18 IMPRESSION: 1. Acute cystitis. 2. Small hiatal hernia. 3. Diverticulosis without diverticulitis. 4. Normal appendix. COMMENTS: Consistent with the [employer]'s Incidental Findings Committee white paper (J Am Donya Radiol 2018): Any incidental renal lesion less than 1 cm or classified as too small to characterize, or any incidental cystic renal lesion characterized as simple-appearing, is likely benign. No follow-up imaging is recommended for these lesions per consensus recommendations based on imaging criteria. Laboratory Results WBC 8.74 10^3/uL (3.29-11.43) 04/27/24 00:43 RBC 4.65 10^6/uL (3.85-5.65) 04/27/24 00:43 Hgb 15.30 g/dL (11.27-16.99) 04/27/24 00:43 Hct 45.0 % (37-53) 04/27/24 00:43 MCV 96.8 fl (82-101) 04/27/24 00:43 MCH 32.9 pg (27-33) 04/27/24 00:43 MCHC 34.0 g/dL (30-55) 04/27/24 00:43 RDW 13.2 % (12.1-15.1) 04/27/24 00:43 Plt Count 222 10^3/cmm (157-399) 04/27/24 00:43 MPV 11.4 fL (7.4-10.4) H 04/27/24 00:43 Neut % (Auto) 54.8 % 04/27/24 00:43 Lymph % (Auto) 31.0 % 04/27/24 00:43 [place] % (Auto) 9.7 % 04/27/24 00:43 Eos % (Auto) 3.8 % 04/27/24 00:43 Baso % (Auto) 0.5 % 04/27/24 00:43 Neut # (Auto) 4.79 10^3/uL (1.8-7.7) 04/27/24 00:43 Lymph # (Auto) 2.7 10^3/uL (0.8-4.8) 04/27/24 00:43 [place] # (Auto) 0.9 10^3/uL (0.2-0.9) 04/27/24 00:43 Eos # (Auto) 0.3 10^3/uL (0.0-0.8) 04/27/24 00:43 Baso # (Auto) 0.0 10^3/uL (0.0-0.1) 04/27/24 00:43 Nucleated RBC % (auto) 0 % 04/27/24 00:43 Nucleated RBCs # 0.0 /100WBC 04/27/24 00:43 Sodium 136 mmol/L (136-145) 04/27/24 00:43 Potassium 4.0 mmol/L (3.5-5.1) 04/27/24 00:43 Chloride 101 mmol/L (98-107) 04/27/24 00:43 Carbon Dioxide 24 mmol/L (22-29) 04/27/24 00:43 Anion Gap 15.0 (5-19) 04/27/24 00:43 BUN 23 mg/dL (6-20) H 04/27/24 00:43 Creatinine 1.2 mg/dL (0.7-1.2) 04/27/24 00:43 GFR Calculation 65.5 mL/min (90-130) L 04/27/24 00:43 Glucose 99 mg/dL (65-115) 04/27/24 00:43 Calculated Osmolality 286 mOsm/kg (285-295) 04/27/24 00:43 Calcium 9.0 mg/dL (8.5-10.5) 04/27/24 00:43 Total Bilirubin 0.3 mg/dL (0.15-1.2) 04/27/24 00:43 AST 20 U/L (0-40) 04/27/24 00:43 ALT 21 U/L (0-41) 04/27/24 00:43 Alkaline Phosphatase 65 U/L (40-130) 04/27/24 00:43 Total Protein 6.8 g/dL (6.6-8.7) 04/27/24 00:43 Albumin 4.4 g/dL (3.5-5.2) 04/27/24 00:43 Globulin 2.4 g/dL (1.3-4.6) 04/27/24 00:43 Urine Color Yellow (Yellow) 04/27/24 02:24 Urine Appearance Clear (CLEAR) 04/27/24 02:24 Urine pH 6.0 (5-7) 04/27/24 02:24 Ur Specific [place] 1.019 (1.005-1.030) 04/27/24 02:24 Urine Protein Negative (Negative) 04/27/24 02:24 Urine Glucose (UA) Negative (Normal) 04/27/24 02:24 Urine Ketones Negative (Negative) 04/27/24 02:24 Urine Blood Negative (Negative) 04/27/24 02:24 Urine Nitrate Negative (Negative) 04/27/24 02:24 Urine Bilirubin Negative (Negative) 04/27/24 02:24 Urine Urobilinogen 0.2 mg/dL (Negative) 04/27/24 02:24 Ur Leukocyte Esterase Negative (Negative) 04/27/24 02:24 Amorphous Sediment Not Reportable 04/27/24 02:24 All radiology interpretation(s) finalized by discharge Discharge Plan Discharge Patient Disposition: Home Clinical Impression: Abdominal pain Condition: Stable Prescriptions: No Action bupropion HCl [Wellbutrin XL] 300 mg tablet extended release 24 hr 300 mg PO QAM Qty: 90 1RF sildenafil 25 mg tablet 25 mg PO DAILY PRN (Reason: sexual activity) 30 Days Qty: 30 0RF Rx Instructions: administer 30 minutes to 4 hours before activity run through 340b oxycodone 5 mg capsule 5 mg PO Q8H PRN (Reason: pain) 5 Days Qty: 14 0RF gabapentin 100 mg capsule 100 mg PO TID 21 Days Qty: 63 0RF Discharge Orders: Discharge ED (Routine); Ordered 04/27/24 Ordered By: Charles Montana Referrals: Kurt Cota MD [Primary Care Provider] - 1 week Patient Instructions: Abdominal Pain (ED) Activity Restrictions/Additional Instructions: Thank you for choosing [facility] for your healthcare needs today. Please realize that you were seen in the emergency department and that we are providing you with an emergency medical screening exam and this may not be a complete and all exclusive of all testing and/or medical workup we may need to determine your element or severity of your illness. It is very important that you follow-up as instructed with your primary care provider or specialist for the additional evaluation and to discuss your medical treatment plan. You may return to the emergency department should you have concerns or if your condition changes or worsens in any way. Coding Level of Care Code ED Industrial Safety And Health Technician for Pamela Childers
[2024-04-27 01:48] LABS: Alanine Aminotransferase 21 U/L (0-41); Albumin Level 4.4 g/dL (3.5-5.2); Alkaline Phosphatase 65 U/L (40-130); Aspartate Amino Transferase 20 U/L (0-40); Blood Urea Nitrogen 23 mg/dL (6-20); Carbon Dioxide 24 mmol/L (22-29); Chloride 101 mmol/L (98-107); Globulin 2.4 g/dL (1.3-4.6); Glomerular Filtration Rate 65.5 mL/min (90-130); Glucose 99 mg/dL (65-115); Osmolality Calculated 286 mOsm/kg (285-295); Sodium 136 mmol/L (136-145); Total Bilirubin 0.3 mg/dL (0.15-1.2); Total Protein 6.8 g/dL (6.6-8.7)
[2024-04-27] MEDS: iohexol 350 mg/mL 500 mL Btl (per mL) IV (02:14)
[2024-04-27 03:02] LABS: Bilirubin Urine Negative (Negative); Blood Urine Negative (Negative); Glucose Urine UA Negative (Normal); Ketones Urine Negative (Negative); Leukocyte Esterase Urine Negative (Negative); Nitrate Urine Negative (Negative); Protein Urine Negative (Negative); Specific Gravity, Urine 1.019 (1.005-1.030); Urine Appearance Clear (CLEAR); Urine Color Yellow (Yellow); Urobilinogen Urine 0.2 mg/dL (Negative)
[2024-04-27 03:09] LABS: Squamous Epithelial Cell Urine 0-4 /hpf (0-5); UA Manual Slide Review YES
[2024-04-27 03:10] LABS: Add Urine Culture? No
== END 2024-04-27 03:12 | disposition home or self-care (01) ==
PROVIDERS: Emergency Provider Emergency Medicine; PCP Family Medicine
DX: R10.31 Right lower quadrant pain (principal); F17.210 Nicotine dependence, cigarettes, uncomplicated
CPT/HCPCS: 74177; 80053; 81001; 85025; 96374; 96375; 99285; J2270; J2405

== ENCOUNTER 2024-05-05 07:30 | Emergency (ER) | payer OTHER, SELFPAY ==
[2024-05-05 07:36] VITALS: BP 150/110; PULSE 70; RESP 18; TEMP 36.5; O2SAT 100; BMI 28.1
--- NOTE | 2024-05-05 07:38 | US_ITS ---
WS: [id number] TESTICULAR ULTRASOUND HISTORY: r testicle pain COMPARISON: 06/11/2016, CT 04/27/2024 TECHNIQUE: Real-time and color Doppler imaging or utilized to perform a testicular ultrasound. Right testicle: 5.3 cm x 3.5 cm x 3.3 cm. Mildly enlarged and heterogeneous testicle with increased vascularity. Systolic and diastolic wavefor m is identified. Focal heterogeneity in stranding within the testicle. This is a new finding. There i s no mass identified. Normal color Doppler is present throughout. Systolic and diastolic velocities are both present. Moderate to large simple hydrocele. Right epididymis: Normal epididymis with no increased vascularity. Left testicle: 4.2 cm x 2.4 cm x 2.7 cm. Mildly prominent testicle with heterogeneity. Striations throughout the testicle are not as prominent as on the RIGHT. There is increased vascularity within the testicle. Normal color Doppler is present throughout. Systolic and diastolic velocities are both present. Small hydrocele. Left epididymis: Normal epididymis with no increased vascularity. US/US scrotum [id number] IMPRESSION: 1. Heterogeneous testicles with no mass. 2. Marked increased vascularity within each testicle highly suspicious for acu te orchitis. 3. Large RIGHT hydrocele.
--- NOTE | 2024-05-05 07:38 | ED_ITS ---
HPI - General Adult 2 General: Chief complaint: Urogenital-Male Stated complaint: Right testical swelling and pain Time Seen by Provider: 05/05/24 07:31 History of Present Illness: 44-year-old male presents emergency room complaining of right testicular pain and swelling. He had hernia surgery 6 days ago. He denies any dysuria urgency or frequency. Pain isolated to the right testicle with significant discomfort. He is tried some ice packs no improvement. No penile drainage. No previous surgery testicles not had a vasectomy. Associated symptoms: Deny chest pain, dyspnea or rash Related Data Previous Rx's Medication Instructions Recorded bupropion HCl 300 mg 24 hr tablet, 300 mg PO QAM #90 tabs 03/09/24 extended release (Wellbutrin XL) sildenafil 25 mg tablet 25 mg PO DAILY PRN sexual activity 03/09/24 30 days #30 tabs gabapentin 100 mg capsule 100 mg PO TID 3 weeks #63 caps 04/07/24 oxycodone 5 mg capsule 5 mg PO Q8H PRN pain 5 days #14 04/07/24 caps doxycycline hyclate 100 mg capsule 100 mg PO BID 14 days #28 caps 05/05/24 hydrocodone 5 mg-acetaminophen 325 1 tab PO Q6H PRN pain #10 tabs 05/05/24 mg tablet Allergies Allergy/AdvReac Type Severity Reaction Status Date / Time levofloxacin [From Levaquin] Allergy ALGY-Anaphy Verified 04/27/24 00:37 laxis Review of Systems 2 Const: Denies: fever(s) or chills Card: Denies: chest pain Resp: Denies: dyspnea GI: Denies: abdominal pain : Reports: testicular pain (Right); Denies: dysuria, urinary frequency or urinary urgency Musc: Denies: neck pain or back pain Skin/Breast: Denies: rash PFSH ED 2 PFSH: Medical History Alcoholism in remission History of gastritis Diverticulosis Family history of brain aneurysm Surgical History History of esophagogastroduodenoscopy (EGD) Social History Smoking and tobacco/nicotine status: current every day tobacco/nicotine user cigarettes [ Other cigarette details: currently at almost a pack a day] Quit status (tobacco/nicotine): has tried quititng Number of times tried to quit tobacco: 5 Second hand smoke exposure: No Alcohol intake: former Year of sobriety/quit date alcohol: 3yrs Substance/Drug Use: never Lives independently: Yes Marital status: Current occupational status: unemployed Current gender identity: Male Physical Exam 2 Const: COMMON NORMALS: no acute distress GENERAL APPEARANCE: cooperative and comfortable ORIENTATION/CONSCIOUSNESS: Yes awake, Yes oriented to person, Yes oriented to place and Yes oriented to time HENMT: COMMON NORMALS: normocephalic, atraumatic and hearing grossly normal bilaterally HEAD & SCALP: normocephalic and atraumatic Resp: COMMON NORMALS: normal respiratory effort, No retractions, No use of accessory muscles and clear to auscultation bilaterally AUSCULTATION: clear to auscultation bilaterally Cardio: COMMON NORMALS: regular rate, regular rhythm and No murmurs present (Cardio) RATE: regular rate RHYTHM: regular rhythm GI: COMMON NORMALS: Soft to palpation and No hepatosplenomegaly present A USCULTATION: Yes normoactive bowel sounds PALPATION: Yes Soft to palpation, No Tenderness to palpation present (GI), No Guarding due to palpation present (GI) and Yes No hepatosplenomegaly present : OTHER: Right testicular pain and swelling of the testicle itself there is no swelling in the scrotum no skin induration no skin ulcerations cysts or abnormal Extremity: COMMON NORMALS: normal to inspection, capillary refill normal, no clubbing, cyanosis or edema, no calf tenderness and no pedal edema Neuro: SENSORIUM/ORIENTATION: Yes oriented to person, Yes oriented to place and Yes oriented to time Skin: COMMON NORMALS: no rashes or lesions noted GENERAL SKIN EXAM: no rashes or lesions noted Course 2 Vital Signs: Vital signs: Vital Signs Temperature 97.7 F 05/05/24 07:36 Pulse Rate 66 05/05/24 11:48 Respiratory Rate 18 05/05/24 07:36 Blood Pressure 136/95 05/05/24 11:48 Pulse Oximetry 96 05/05/24 11:48 Oxygen Delivery Me thod Room Air 05/05/24 11:00 [facility] - General Adult Medical Decision Making Orchitis. Urine for chlamydia and GC will be tested. Patient given ceftriaxone and started on doxycycline. Use hydrocodone or ibuprofen for pain and follow-up with with his regular doctor if symptoms worsen or change return Lab Data 05/05/24 07:47 05/05/24 07:47 Radiology Impressions Scrotum Ultrasound 05/05/24 07:38 IMPRESSION: 1. Heterogeneous testicles with no mass. 2. Marked increased vascularity within each testicle highly suspicious for acute orchitis. 3. Large RIGHT hydrocele. Laboratory Results WBC 9.04 10^3/uL (3.29-11.43) 05/05/24 07:47 RBC 5.00 10^6/uL (3.85-5.65) 05/05/24 07:47 Hgb 16.40 g/dL (11.27-16.99) 05/05/24 07:47 Hct 48.5 % (37-53) 05/05/24 07:47 MCV 97.0 fl (82-101) 05/05/24 07:47 MCH 32.8 pg (27-33) 05/05/24 07:47 MCHC 33.8 g/dL (30-55) 05/05/24 07:47 RDW 13.2 % (12.1-15.1) 05/05/24 07:47 Plt Count 200 10^3/cmm (157-399) 05/05/24 07:47 MPV 11.0 fL (7.4-10.4) H 05/05/24 07:47 Neut % (Auto) 50.5 % 05/05/24 07:47 Lymph % (Auto) 34.2 % 05/05/24 07:47 [place] % (Auto) 9.4 % 05/05/24 07:47 Eos % (Auto) 5.0 % 05/05/24 07:47 Baso % (Auto) 0.6 % 05/05/24 07:47 Neut # (Auto) 4.57 10^3/uL (1.8-7.7) 05/05/24 07:47 Lymph # (Auto) 3.1 10^3/uL (0.8-4.8) 05/05/24 07:47 [place] # (Auto) 0.9 10^3/uL (0.2-0.9) 05/05/24 07:47 Eos # (Auto) 0.5 10^3/uL (0.0-0.8) 05/05/24 07:47 Baso # (Auto) 0.1 10^3/uL (0.0-0.1) 05/05/24 07:47 Nucleated RBC % (auto) 0 % 05/05/24 07:47 Nucleated RBCs # 0.0 /100WBC 05/05/24 07:47 Sodium 139 mmol/L (136-145) 05/05/24 07:47 Potassium 3.9 mmol/L (3.5-5.1) 05/05/24 07:47 Chloride 102 mmol/L (98-107) 05/05/24 07:47 Carbon Dioxide 27 mmol/L (22-29) 05/05/24 07:47 Anion Gap 13.9 (5-19) 05/05/24 07:47 BUN 19 mg/dL (6-20) 05/05/24 07:47 Creatinine 1.0 mg/dL (0.7-1.2) 05/05/24 07:47 GFR Calculation 80.8 mL/min (90-130) L 05/05/24 07:47 Glucose 114 mg/dL (65-115) 05/05/24 07:47 Calculated Osmolality 291 mOsm/kg (285-295) 05/05/24 07:47 Calcium 9.1 mg/dL (8.5-10.5) 05/05/24 07:47 Total Bilirubin 0.4 mg/dL (0.15-1.2) 05/05/24 07:47 AST 22 U/L (0-40) 05/05/24 07:47 ALT 29 U/L (0-41) 05/05/24 07:47 Alkaline Phosphatase 69 U/L (40-130) 05/05/24 07:47 Total Protein 7.0 g/dL (6.6-8.7) 05/05/24 07:47 Albumin 4.4 g/dL (3.5-5.2) 05/05/24 07:47 Globulin 2.6 g/dL (1.3-4.6) 05/05/24 07:47 Urine Color Yellow (Yellow) 05/05/24 09:05 Urine Appearance Clear (CLEAR) 05/05/24 09:05 Urine pH 5.5 (5-7) 05/05/24 09:05 Ur Specific [place] 1.025 (1.005-1.030) 05/05/24 09:05 Urine Protein Negative (Negative) 05/05/24 09:05 Urine Glucose (UA) Negative (Normal) 05/05/24 09:05 Urine Ketones Negative (Negative) 05/05/24 09:05 Urine Blood Negative (Negative) 05/05/24 09:05 Urine Nitrate Negative (Negative) 05/05/24 09:05 Urine Bilirubin Negative (Negative) 05/05/24 09:05 Urine Urobilinogen 1.0 mg/dL (Negative) 05/05/24 09:05 Ur Leukocyte Esterase Negative (Negative) 05/05/24 09:05 Urine RBC 0-2 /hpf (0-2) 05/05/24 09:05 Urine WBC 0-5 /hpf (0-5) 05/05/24 09:05 Ur Squamous Epith Cells 0-5 /hpf (0-5) 05/05/24 09:05 Amorphous Sediment Not Reportable 05/05/24 09:05 Urine Bacteria None seen /hpf (NONE) 05/05/24 09:05 Hyaline Casts 0.40 /lpf 05/05/24 09:05 All radiology interpretation(s) finalized by discharge Discharge Plan Discharge Patient Disposition: Home Clinical Impression: Acute orchitis, Bilateral hydrocele Condition: Stable Prescriptions: New doxycycline hyclate 100 mg capsule 100 mg PO BID 14 Days Qty: 28 0RF hydrocodone-acetaminophen 5-325 mg tablet 1 tab PO Q6H PRN (Reason: pain) Qty: 10 0RF No Action bupropion HCl [Wellbutrin XL] 300 mg tablet extended release 24 hr 300 mg PO QAM Qty: 90 1RF sildenafil 25 mg tablet 25 mg PO DAILY PRN (Reason: sexual activity) 30 Days Qty: 30 0RF Rx Instructions: administer 30 minutes to 4 hours before activity run through 340b oxycodone 5 mg capsule 5 mg PO Q8H PRN (Reason: pain) 5 Days Qty: 14 0RF gabapentin 100 mg capsule 100 mg PO TID 21 Days Qty: 63 0RF Discharge Orders: Discharge ED (Routine); Ordered 05/05/24 Ordered By: Adonay Worrell Referrals: Kurt Cota MD [Primary Care Provider] - Discharge Diet: Usual diet Discharge Activity: Increase activity as tolerated Patient Instructions: Orchitis (ED), Opioid Safety, Pain Management Activity Restrictions/Additional Instructions: Thank you for choosing [facility] for your healthcare needs today. It is very important that you follow up as instructed or that you return to the Emergency Department should you have concerns or if your condition changes or worsens in any way. Follow-up with your primary care doctor within the next 4 to 5 days Coding Level of Care Code ED Dryer And Washer Mechanic for Pamela Childers
[2024-05-05 08:01] LABS: Basophils # 0.1 10^3/uL (0.0-0.1); Basophils % 0.6 %; Eosinophils # 0.5 10^3/uL (0.0-0.8); Hematocrit 48.5 % (37-53); Lymphocytes # 3.1 10^3/uL (0.8-4.8); Lymphocytes % 34.2 %; Mean Corpuscular HGB Conc 33.8 g/dL (30-55); Mean Corpuscular Hemoglobin 32.8 pg (27-33); Monocytes # 0.9 10^3/uL (0.2-0.9); Monocytes % 9.4 %; Neutrophils # 4.57 10^3/uL (1.8-7.7); Neutrophils % 50.5 %; Nucleated Red Blood Cells % 0 %; Platelet Count 200 10^3/cmm (157-399); Red Cell Distribution Width 13.2 % (12.1-15.1); White Blood Count 9.04 10^3/uL (3.29-11.43)
[2024-05-05] MEDS: ketorolac 30 mg/mL INJ IVP (08:07)
[2024-05-05 08:10] LABS: Alanine Aminotransferase 29 U/L (0-41); Albumin Level 4.4 g/dL (3.5-5.2); Alkaline Phosphatase 69 U/L (40-130); Anion Gap 13.9 (5-19); Aspartate Amino Transferase 22 U/L (0-40); Blood Urea Nitrogen 19 mg/dL (6-20); Calcium 9.1 mg/dL (8.5-10.5); Carbon Dioxide 27 mmol/L (22-29); Chloride 102 mmol/L (98-107); Creatinine Clr Calc Pharmacy 104.7132; Globulin 2.6 g/dL (1.3-4.6); Glomerular Filtration Rate 80.8 mL/min (90-130); Glucose 114 mg/dL (65-115); Osmolality Calculated 291 mOsm/kg (285-295); Potassium 3.9 mmol/L (3.5-5.1); Sodium 139 mmol/L (136-145); Total Bilirubin 0.4 mg/dL (0.15-1.2)
--- NOTE | 2024-05-05 09:33 | ECG_ITS ---
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
[2024-05-05 09:50] VITALS: BP 131/88; PULSE 64; O2SAT 94
[2024-05-05 09:58] LABS: Bilirubin Urine Negative (Negative); Blood Urine Negative (Negative); Glucose Urine UA Negative (Normal); Ketones Urine Negative (Negative); Leukocyte Esterase Urine Negative (Negative); Nitrate Urine Negative (Negative); Protein Urine Negative (Negative); Specific Gravity, Urine 1.025 (1.005-1.030); Urine Appearance Clear (CLEAR); Urine Color Yellow (Yellow); pH Urine 5.5 (5-7)
[2024-05-05 10:00] VITALS: BP 122/85; PULSE 64; O2SAT 96
[2024-05-05 10:01] LABS: Add Urine Microscopic? YES; Bacteria Urine None Seen /hpf; RBC Urine 0-2 /hpf (0-2); Squamous Epithelial Cell Urine 0-5 /hpf (0-5); WBC Urine 0-5 /hpf (0-5)
[2024-05-05 10:03] LABS: Add Urine Culture? No
[2024-05-05 10:30] VITALS: BP 123/90; PULSE 66; O2SAT 96
[2024-05-05 11:00] VITALS: BP 125/90; PULSE 54; O2SAT 94
[2024-05-05] MEDS: cefTRIAXone 1,000 mg SDV 1000 MG IVP (11:25)
[2024-05-05 11:48] VITALS: BP 136/95; PULSE 66; O2SAT 96
[2024-05-06 13:10] LABS: Chlamydia Trachomatis RNA TMA NOT DETECTED (NOT DETECTED); Neisseria Gonorrhoeae RNA, TMA NOT DETECTED (NOT DETECTED)
== END 2024-05-05 11:48 | disposition home or self-care (01) ==
PROVIDERS: Emergency Provider Family Medicine; PCP Family Medicine
DX: N45.2 Orchitis (principal); N43.3 Hydrocele, unspecified; F17.210 Nicotine dependence, cigarettes, uncomplicated
CPT/HCPCS: 36415; 76870; 80053; 81001; 85025; 87491; 87591; 93005; 96374; 96375; 99285; J0696; J1885

== ENCOUNTER 2024-06-29 16:11 | Emergency (ER) | payer OTHER, SELFPAY ==
[2024-06-29 16:24] VITALS: BP 137/96; PULSE 76; TEMP 36.7; O2SAT 98; BMI 28.7
[2024-06-29 17:00] VITALS: BP 145/96; PULSE 75; O2SAT 95
--- NOTE | 2024-06-29 17:03 | USR_ITS ---
PROCEDURE INFORMATION: Exam: US Scrotum Exam date and time: 06/29/2024 5:19 PM Age: 44 years old Clinical indication: Groin pain and scrotum pain; Prior surgery; Surgery date: 1-6 months; Surgery type: Hernia repair on RT; Additional info: R testicle pain TECHNIQUE: Imaging protocol: Real-time ultrasound of the scrotum and contents with color Doppler and image documentation. COMPARISON: US scrotum [id number] 05/05/2024 7:53 AM FINDINGS: Right testicle: The right testicle is normal in echogenicity, size and flow. Right testicle measures 5.2 x 3.2 x 3.6 cm. Large right-sided hydrocele, similar to prior exam from April 2024. Echoes within the hydrocele may be artifactual. Left testicle: The left testicle is normal in echogenicity, size and flow. Left testicle measures 4.4 x 2.2 x 2.3 cm. Trace-small left-sided hydrocele. Epididymides: The epididymi demonstrate normal echotexture and vascularity. Scrotum/soft tissues: No evidence of fluid collection.. US/US scrotum [id number] IMPRESSION: 1. Normal flow in both testicles. No evidence of torsion. 2. Large right-sided hydrocele. Mild complexity of the fluid within the hydrocele may be artifactual. Consider correlation with clinical and laboratory findings for infection. Follow-up urologic evaluation is recommended.
--- NOTE | 2024-06-29 17:06 | ED_ITS ---
HPI - Male Genitourinary 2 General: Chief complaint: Urogenital-Male Stated complaint: NV, Testicle infection post op hernia Time Seen by Provider: 06/29/24 16:58 Source: patient Mode of arrival: ambulatory Limitations: no limitations History of Present Illness: 44-year-old male states he had inguinal hernia surgery back in March he states that he has had some increased swelling to his right testicle pain he been seen here April and was diagnosed with orchitis he has not seen urologist she states that over the last few days he had increased swelling to that testicle along with pain he states he had some slight dysuria subjective fevers he denies any abdominal pain rates pain his testicle a 6 out of 10 Associated symptoms: Reports dysuria; Deny nausea or vomiting Related Data Previous Rx's Medication Instructions Recorded bupropion HCl 300 mg 24 hr tablet, 300 mg PO QAM #90 tabs 03/09/24 extended release (Wellbutrin XL) sildenafil 25 mg tablet 25 mg PO DAILY PRN sexual activity 03/09/24 30 days #30 tabs gabapentin 100 mg capsule 100 mg PO TID 3 weeks #63 caps 04/07/24 oxycodone 5 mg capsule 5 mg PO Q8H PRN pain 5 days #14 04/07/24 caps hydrocodone 5 mg-acetaminophen 325 1 tab PO Q6H PRN pain #10 tabs 05/05/24 mg tablet doxycycline hyclate 100 mg tablet 100 mg PO BID 10 days #20 tabs 06/29/24 hydrocodone 5 mg-acetaminophen 325 1 tab PO Q6H PRN pain #14 tabs 06/29/24 mg tablet ondansetron 4 mg disintegrating 4 mg PO Q6H PRN nausea and 06/29/24 tablet vomiting #14 tabs Allergies Allergy/AdvReac Type Severity Reaction Status Date / Time levofloxacin [From Levaquin] Allergy ALGY-Anaphy Verified 06/29/24 16:30 laxis macadamia nut oil Allergy Unknown Verified 06/29/24 16:30 Review of Systems 2 Const: Denies: fever(s), chills, body aches or change in appetite ENMT: Denies: throat pain or dental pain Card: Denies: chest pain Resp: Denies: dyspnea GI: Denies: abdominal pain, nausea, vomiting or diarrhea : Reports: dysuria, testicular pain and scrotal swelling Musc: Denies: neck pain or back pain Skin/Breast: Denies: rash Neuro: Denies: headache(s) PFSH ED 2 PFSH: Medical History Alcoholism in remission History of gastritis Diverticulosis Family history of brain aneurysm Surgical History History of esophagogastroduodenoscopy (EGD) Social History Smoking and tobacco/nicotine status: current every day tobacco/nicotine user cigarettes [ Other cigarette details: currently at almost a pack a day] Quit status (tobacco/nicotine): has tried quititng Number of times tried to quit tobacco: 5 Second hand smoke exposure: No Alcohol intake: former Year of sobriety/quit date alcohol: 3yrs Substance/Drug Use: never Lives independently: Yes Marital status: Current occupational status: unemployed Current gender identity: Male Physical Exam 2 Const: COMMON NORMALS: no acute distress, patient oriented x3 and healthy appearing HENMT: COMMON NORMALS: normocephalic and atraumatic HEAD & SCALP: n ormocephalic and atraumatic Eye: COMMON NORMALS: conjunctivae normal CONJUNCTIVA: Yes conjunctivae normal Neck/C-Spine: COMMON NORMALS: full ROM and supple Chest: COMMONS NORMALS: normal inspection of the chest Resp: COMMON NORMALS: normal respiratory effort Cardio: COMMON NORMALS: regular rate, regular rhythm and No murmurs present (Cardio) RATE: regular rate RHYTHM: regular rhythm GI: COMMON NORMALS: Normal to inspection, nondistended, normoactive bowel sounds present, Soft to palpation, non-tender and no masses PALPATION: Yes Soft to palpation : OTHER: Swelling noted to right chest wall exam with tenderness Extremity: COMMON NORMALS: normal to inspection and full ROM Neuro: COMMON NORMALS: patient oriented x3, moves all extremities and no focal motor deficits Psych: COMMON NORMALS: mental status grossly normal, Normal thought process present and cooperative THOUGHT PROCESS: Normal thought process present Skin: COMMON NORMALS: no rashes or lesions noted and no wounds GENERAL SKIN EXAM: no rashes or lesions noted Course 2 Vital Signs: Vital signs: Vital Signs Temperature 98.0 F 06/29/24 16:24 Pulse Rate 63 06/29/24 18:00 Blood Pressure 130/92 06/29/24 18:00 Pulse Oximetry 96 06/29/24 18:00 Oxygen Delivery Me thod Room Air 06/29/24 18:00 MDM - Male Medical Decision Making Patient presents here with hydrocele to right testicle has been going on for some time we will start him on doxycycline along with pain meds he needs to follow-up with urology will put in referral he is return if worsening he has no signs of torsion. Medical Records I reviewed the patient's medical records. Lab Data I reviewed the patient's lab results. 06/29/24 17:08 06/29/24 17:08 Radiology Impressions Scrotum Ultrasound 06/29/24 17:03 IMPRESSION: 1. Normal flow in both testicles. No evidence of torsion. 2. Large right-sided hydrocele. Mild complexity of the fluid within the hydrocele may be artifactual. Consider correlation with clinical and laboratory findings for infection. Follow-up urologic evaluation is recommended. Laboratory Results WBC 7.67 10^3/uL (3.29-11.43) 06/29/24 17:08 RBC 4.93 10^6/uL (3.85-5.65) 06/29/24 17:08 Hgb 15.90 g/dL (11.27-16.99) 06/29/24 17:08 Hct 48.2 % (37-53) 06/29/24 17:08 MCV 97.8 fl (82-101) 06/29/24 17:08 MCH 32.3 pg (27-33) 06/29/24 17:08 MCHC 33.0 g/dL (30-55) 06/29/24 17:08 RDW 12.8 % (12.1-15.1) 06/29/24 17:08 Plt Count 168 10^3/cmm (157-399) 06/29/24 17:08 MPV 10.9 fL (7.4-10.4) H 06/29/24 17:08 Neut % (Auto) 57.1 % 06/29/24 17:08 Lymph % (Auto) 29.3 % 06/29/24 17:08 [place] % (Auto) 9.5 % 06/29/24 17:08 Eos % (Auto) 3.3 % 06/29/24 17:08 Baso % (Auto) 0.4 % 06/29/24 17:08 Neut # (Auto) 4.38 10^3/uL (1.8-7.7) 06/29/24 17:08 Lymph # (Auto) 2.3 10^3/uL (0.8-4.8) 06/29/24 17:08 [place] # (Auto) 0.7 10^3/uL (0.2-0.9) 06/29/24 17:08 Eos # (Auto) 0.3 10^3/uL (0.0-0.8) 06/29/24 17:08 Baso # (Auto) 0.0 10^3/uL (0.0-0.1) 06/29/24 17:08 Nucleated RBC % (auto) 0 % 06/29/24 17:08 Nucleated RBCs # 0.0 /100WBC 06/29/24 17:08 Sodium 137 mmol/L (136-145) 06/29/24 17:08 Potassium 4.4 mmol/L (3.5-5.1) 06/29/24 17:08 Chloride 105 mmol/L (98-107) 06/29/24 17:08 Carbon Dioxide 24 mmol/L (22-29) 06/29/24 17:08 Anion Gap 12.4 (5-19) 06/29/24 17:08 BUN 15 mg/dL (6-20) 06/29/24 17:08 Creatinine 0.9 mg/dL (0.7-1.2) 06/29/24 17:08 GFR Calculation 91.3 mL/min (90-130) 06/29/24 17:08 Glucose 97 mg/dL (65-115) 06/29/24 17:08 Calculated Osmolality 285 mOsm/kg (285-295) 06/29/24 17:08 Calcium 9.0 mg/dL (8.5-10.5) 06/29/24 17:08 Total Bilirubin 0.3 mg/dL (0.15-1.2) 06/29/24 17:08 AST 20 U/L (0-40) 06/29/24 17:08 ALT 27 U/L (0-41) 06/29/24 17:08 Alkaline Phosphatase 72 U/L (40-130) 06/29/24 17:08 Total Protein 6.2 g/dL (6.6-8.7) L 06/29/24 17:08 Albumin 4.4 g/dL (3.5-5.2) 06/29/24 17:08 Globulin 1.8 g/dL (1.3-4.6) 06/29/24 17:08 Lipase 32 U/L (13-60) 06/29/24 17:08 Urine Color Yellow (Yellow) 06/29/24 17:00 Urine Appearance Clear (CLEAR) 06/29/24 17:00 Urine pH 6.5 (5-7) 06/29/24 17:00 Ur Specific [place] 1.019 (1.005-1.030) 06/29/24 17:00 Urine Protein Negative (Negative) 06/29/24 17:00 Urine Glucose (UA) Negative (Normal) 06/29/24 17:00 Urine Ketones Negative (Negative) 06/29/24 17:00 Urine Blood Negative (Negative) 06/29/24 17:00 Urine Nitrate Negative (Negative) 06/29/24 17:00 Urine Bilirubin Negative (Negative) 06/29/24 17:00 Urine Urobilinogen 0.2 mg/dL (Negative) 06/29/24 17:00 Ur Leukocyte Esterase Negative (Negative) 06/29/24 17:00 Amorphous Sediment Not Reportable 06/29/24 17:00 All radiology interpretation(s) finalized by discharge Discharge Plan Discharge Patient Disposition: Home Clinical Impression: Hydrocele in adult Condition: Stable Prescriptions: New hydrocodone-acetaminophen 5-325 mg tablet 1 tab PO Q6H PRN (Reason: pain) Qty: 14 0RF ondansetron 4 mg tablet,disintegrating 4 mg PO Q6H PRN (Reason: nausea and vomiting) Qty: 14 0RF doxycycline hyclate 100 mg tablet 100 mg PO BID 10 Days Qty: 20 0RF No Action bupropion HCl [Wellbutrin XL] 300 mg tablet extended release 24 hr 300 mg PO QAM Qty: 90 1RF sildenafil 25 mg tablet 25 mg PO DAILY PRN (Reason: sexual activity) 30 Days Qty: 30 0RF Rx Instructions: administer 30 minutes to 4 hours before activity run through 340b oxycodone 5 mg capsule 5 mg PO Q8H PRN (Reason: pain) 5 Days Qty: 14 0RF gabapentin 100 mg capsule 100 mg PO TID 21 Days Qty: 63 0RF hydrocodone-acetaminophen 5-325 mg tablet 1 tab PO Q6H PRN (Reason: pain) Qty: 10 0RF Discharge Orders: Discharge ED (Routine); Ordered 06/29/24 Ordered By: Reyes Seay Referrals: Kurt Cota MD [Primary Care Provider] - Discharge Diet: Advance as tolerated Discharge Activity: Resume usual activity Patient Instructions: Hydrocele, Testicle Pain (ED) Coding Level of Care Code ED Change Management Director for Pamela Childers
[2024-06-29 17:13] LABS: Basophils % 0.4 %; Eosinophils # 0.3 10^3/uL (0.0-0.8); Eosinophils % 3.3 %; Hematocrit 48.2 % (37-53); Lymphocytes # 2.3 10^3/uL (0.8-4.8); Lymphocytes % 29.3 %; Mean Corpuscular Hemoglobin 32.3 pg (27-33); Mean Corpuscular Volume 97.8 fl (82-101); Mean Platelet Volume 10.9 fL (7.4-10.4); Monocytes # 0.7 10^3/uL (0.2-0.9); Monocytes % 9.5 %; Neutrophils # 4.38 10^3/uL (1.8-7.7); Neutrophils % 57.1 %; Nucleated Red Blood Cells % 0 %; Platelet Count 168 10^3/cmm (157-399); Red Blood Count 4.93 10^6/uL (3.85-5.65); Red Cell Distribution Width 12.8 % (12.1-15.1); White Blood Count 7.67 10^3/uL (3.29-11.43)
[2024-06-29 17:30] VITALS: BP 140/86; PULSE 68; O2SAT 99
[2024-06-29 17:32] LABS: Alanine Aminotransferase 27 U/L (0-41); Albumin Level 4.4 g/dL (3.5-5.2); Alkaline Phosphatase 72 U/L (40-130); Aspartate Amino Transferase 20 U/L (0-40); Blood Urea Nitrogen 15 mg/dL (6-20); Carbon Dioxide 24 mmol/L (22-29); Chloride 105 mmol/L (98-107); Creatinine Clr Calc Pharmacy 117.4118; Globulin 1.8 g/dL (1.3-4.6); Glomerular Filtration Rate 91.3 mL/min (90-130); Glucose 97 mg/dL (65-115); Lipase 32 U/L (13-60); Osmolality Calculated 285 mOsm/kg (285-295); Sodium 137 mmol/L (136-145); Total Bilirubin 0.3 mg/dL (0.15-1.2); Total Protein 6.2 g/dL (6.6-8.7)
[2024-06-29 17:35] LABS: Anion Gap 12.4 (5-19); Potassium 4.4 mmol/L (3.5-5.1)
[2024-06-29] MEDS: morphine 4 mg/mL SDV 1 mL IVP (17:41)
[2024-06-29] MEDS: ondansetron 2 mg/ML SDV 2 mL 4 MG IVP (17:41)
[2024-06-29 18:00] VITALS: BP 130/92; PULSE 63; O2SAT 96
[2024-06-29 18:25] LABS: Bilirubin Urine Negative (Negative); Blood Urine Negative (Negative); Glucose Urine UA Negative (Normal); Ketones Urine Negative (Negative); Leukocyte Esterase Urine Negative (Negative); Nitrate Urine Negative (Negative); Protein Urine Negative (Negative); Specific Gravity, Urine 1.019 (1.005-1.030); Urine Appearance Clear (CLEAR); Urine Color Yellow (Yellow); Urobilinogen Urine 0.2 mg/dL (Negative); pH Urine 6.5 (5-7)
[2024-06-29 18:30] LABS: Add Urine Microscopic? YES; Bacteria Urine None Seen /hpf; RBC Urine 0-2 /hpf (0-2); Squamous Epithelial Cell Urine 0-5 /hpf (0-5); WBC Urine 0-5 /hpf (0-5)
[2024-06-29 18:38] VITALS: BP 127/77; PULSE 86; O2SAT 99
--- NOTE | 2024-06-30 08:18 | DCPLANNER ---
Referral sent to [facility]
== END 2024-06-29 18:40 | disposition home or self-care (01) ==
PROVIDERS: Emergency Provider Emergency Medicine; PCP Family Medicine
DX: N43.3 Hydrocele, unspecified (principal); F17.210 Nicotine dependence, cigarettes, uncomplicated
CPT/HCPCS: 76870; 80053; 81001; 83690; 85025; 96374; 96375; 99285; J2270; J2405

== ENCOUNTER 2024-07-21 05:15 | Emergency (ER) | payer OTHER, SELFPAY ==
[2024-07-21] VITALS (12 sets, daily range): BP systolic 167; BP diastolic 90–97; PULSE 77–91; RESP 18; TEMP 36.6; O2SAT 93–98; BMI 29.2
--- NOTE | 2024-07-21 05:54 | ED_ITS ---
HPI - General Adult General: Chief complaint: General Medical Stated complaint: swelling right side of neck blurred vision High BP Time Seen by Provider: 07/21/24 05:39 Source: patient Mode of arrival: ambulatory Limitations: no limitations History of Present Illness: 44-year-old male states that he has had cough congestion over the last 2 to 3 days he states he had some tenderness over the right side of his neck as well he denies any vomiting or diarrhea denies any fevers denies any difficulty swallowing. Associated symptoms: Deny chest pain, dyspnea, headache(s), nausea, rash or vomiting Related Data Home Medications Medication Instructions Recorded Confirmed doxycycline hyclate 100 mg capsule 100 mg PO BID 07/09/24 07/09/24 Previous Rx's Medication Instructions Recorded sildenafil 25 mg tablet 25 mg PO DAILY PRN sexual activity 03/09/24 30 days #30 tabs gabapentin 100 mg capsule 100 mg PO TID 3 weeks #63 caps 04/07/24 hydrocodone 5 mg-acetaminophen 325 1 tab PO Q6H PRN pain #14 tabs 06/29/24 mg tablet ondansetron 4 mg disintegrating 4 mg PO Q6H PRN nausea and 06/29/24 tablet vomiting #14 tabs bupropion HCl 300 mg 24 hr tablet, 300 mg PO QAM #90 tabs 07/09/24 extended release (Wellbutrin XL) Allergies Allergy/AdvReac Type Severity Reaction Status Date / Time levofloxacin [From Levaquin] Allergy ALGY-Anaphy Verified 07/21/24 05:28 laxis macadamia nut oil Allergy Unknown Verified 07/21/24 05:28 Review of Systems Const: Denies: fever(s), chills, body aches or change in appetite ENMT: Reports: nasal congestion; Denies: throat pain or dental pain Card: Denies: chest pain Resp: Reports: non-productive cough; Denies: dyspnea GI: Denies: abdominal pain, nausea, vomiting or diarrhea : Denies: dysuria Musc: Reports: neck pain; Denies: back pain Skin/Breast: Denies: rash Neuro: Denies: headache(s) PFSH ED PFSH: Medical History Alcoholism in remission History of gastritis Diverticulosis Family history of brain aneurysm Surgical History History of esophagogastroduodenoscopy (EGD) Social History Smoking and tobacco/nicotine status: current every day tobacco/nicotine user cigarettes [ Other cigarette details: currently at almost a pack a day] Quit status (tobacco/nicotine): has tried quititng Number of times tried to quit tobacco: 5 Second hand smoke exposure: No Alcohol intake: former Year of sobriety/quit date alcohol: 3yrs Substance/Drug Use: never Lives independently: Yes Marital status: Current occupational status: unemployed Current gender identity: Male Physical Exam Const: COMMON NORMALS: no acute distress, patient oriented x3 and healthy appearing HENMT: COMMON NORMALS: normocephalic and atraumatic HEAD & SCALP: normocephalic and atraumatic Eye: COMMON NORMALS: Equal, round and reactive pupils present and EOMs intact bilaterally PUPIL: Yes Equal, round and reactive pupils present Neck/C-Spine: COMMON NORMALS: full ROM and supple Chest: COMMONS NORMALS: normal inspection of the chest and normal palpation of entire chest wall Resp: COMMON NORMALS: normal respiratory effort, No retractions, No use of accessory muscles and clear to auscultation bilaterally AUSCULTATION: clear to auscultation bilaterally Cardio: COMMON NORMALS: regular rate, regular rhythm and No murmurs present (Cardio) RATE: regular rate RHYTHM: regular rhythm GI: COMMON NORMALS: Normal to inspection, nondistended, normoactive bowel sounds present, Soft to palpation, non-tender and no masses PALPATION: Yes Soft to palpation Extremity: COMMON NORMALS: normal to inspection and full ROM Neuro: COMMON NORMALS: patient oriented x3, moves all extremities and no focal motor deficits Psych: COMMON NORMALS: mental status grossly normal, Normal thought process present and cooperative THOUGHT PROCESS: Normal thought process present Skin: COMMON NORMALS: no rashes or lesions noted and no wounds GENERAL SKIN EXAM: no rashes or lesions noted Course Vital Signs: Vital signs: Vital Signs Temperature 97.8 F 07/21/24 05:25 Pulse Rate 80 07/21/24 05:25 Respiratory Rate 18 07/21/24 05:25 Blood Pressure 167/97 07/21/24 05:25 Pulse Oximetry 96 07/21/24 05:25 Oxygen Delivery Me thod Room Air 07/21/24 05:25 MDM - General Adult Medical Decision Making Patient presents here with cough congestion likely viral upper respiratory infection is having some right-sided neck pain likely from his cough or lymphadenopathy no signs of abscess he is stable for discharge she is follow-up with PCP return if worsening. Medical Records I reviewed the patient's medical records. No radiology studies performed this visit Discharge Plan Discharge Patient Disposition: Home Clinical Impression: Upper respiratory infection, Neck pain Condition: Stable Prescriptions: No Action sildenafil 25 mg tablet 25 mg PO DAILY PRN (Reason: sexual activity) 30 Days Qty: 30 0RF Rx Instructions: administer 30 minutes to 4 hours before activity run through 340b gabapentin 100 mg capsule 100 mg PO TID 21 Days Qty: 63 0RF doxycycline hyclate 100 mg capsule 100 mg PO BID bupropion HCl [Wellbutrin XL] 300 mg tablet extended release 24 hr 300 mg PO QAM Qty: 90 1RF hydrocodone-acetaminophen 5-325 mg tablet 1 tab PO Q6H PRN (Reason: pain) Qty: 14 0RF ondansetron 4 mg tablet,disintegrating 4 mg PO Q6H PRN (Reason: nausea and vomiting) Qty: 14 0RF Discharge Orders: Discharge ED (Routine); Ordered 07/21/24 Ordered By: Reyes Seay Referrals: Kurt Cota MD [Primary Care Provider] - 4-7 days Discharge Diet: Advance as tolerated Discharge Activity: Resume usual activity Patient Instructions: Upper Respiratory Infection (ED), Neck Pain (ED) Coding Level of Care Code ED Construction Trench Digger for Pamela Childers
[2024-07-21] MEDS: dexamethasone 10 mg/mL INJ IM (06:15)
[2024-07-21 07:27] LABS: Covid PCR NEGATIVE (Negative); Influenza A NEGATIVE (Negative); Influenza B NEGATIVE (Negative); Respiratory Syncytial Virus Ce NEGATIVE (Negative)
== END 2024-07-21 06:16 | disposition home or self-care (01) ==
PROVIDERS: Emergency Provider Emergency Medicine; PCP Family Medicine
DX: J06.9 Acute upper respiratory infection, unspecified (principal); M54.2 Cervicalgia; F17.210 Nicotine dependence, cigarettes, uncomplicated
CPT/HCPCS: 0241U; 96372; 99284; J1100

== ENCOUNTER 2024-10-14 18:09 | Emergency (ER) | payer OTHER, SELFPAY ==
[2024-10-14 18:30] VITALS: BP 162/95; PULSE 69; RESP 14; TEMP 36.6; O2SAT 100
--- NOTE | 2024-10-14 21:04 | USR_ITS ---
PROCEDURE INFORMATION: Exam: US Scrotum Exam date and time: 10/14/2024 10:20 PM Age: 44 years old Clinical indication: Scrotum pain; Prior surgery; Surgery date: <1 month; Surgery type: Right hydrocelectomy 09/21/2024; Additional info: Recurrent right-sided scrotal pain and swelling, , recent hydrocele surgery TECHNIQUE: Imaging protocol: Real-time ultrasound of the scrotum and contents with color Doppler and image documentation. COMPARISON: US scrotum [id number] 06/29/2024 5:19 PM FINDINGS: Right testicle: Normal. No mass. Normal color Doppler and arterial waveforms. No torsion. Right testicle measuring 4.9 x 3.4 x 3.3 cm. Left testicle: Normal. No mass. Normal color Doppler and arterial waveforms. No torsion. Left testicle measuring 4.1 x 3.1 x 2.1 cm. Epididymides: Left epididymis measuring 2.4 x 1.0 x 1.0 cm. 2 mm simple cyst within the head of the left epididymis. Right epididymis measuring 3.2 x 1.1 x 2.1 cm. Scrotum/soft tissues: Large volume right hydrocele measuring 7.0 x 3.8 x 6.8 cm. US/US scrotum [id number] IMPRESSION: 1. Large volume right hydrocele. 2. Negative for testicular torsion. No findings identified to suggest orchitis or epididymitis.
--- NOTE | 2024-10-14 21:06 | W.ED.MALEGU ---
HPI - Male Genitourinary General: Chief complaint: Urogenital-Male Stated complaint: post surg problems with testi area Time Seen by Provider: 10/14/24 20:55 History of Present Illness: Patient presents to the ER with complaints of right sided scrotal pain and swelling. Patient said he had hydrocelectomy by Dr. Morales urology at [place] on September 21, 2024 and the outward appearance has not changed. And the pain is still there. Patient's right scrotum is swollen and hurts to move. Patient has been resting, ice, NSAIDs but he says the pain keeps getting worse. Patient said he did try to call Dr. Morales's clinic but was unable to get a hold of anyone. Patient denies any nausea vomiting fevers chills constipation diarrhea pain burning frequency with urination Related Data Home Medications ?Medication ?Instructions ?Recorded ?Confirmed doxycycline hyclate 100 mg capsule 100 mg PO BID 07/09/24 07/09/24 Previous Rx's ?Medication ?Instructions ?Recorded sildenafil 25 mg tablet 25 mg PO DAILY PRN sexual activity 03/09/24 30 days #30 tabs gabapentin 100 mg capsule 100 mg PO TID 3 weeks #63 caps 04/07/24 hydrocodone 5 mg-acetaminophen 325 1 tab PO Q6H PRN pain #14 tabs 06/29/24 mg tablet ondansetron 4 mg disintegrating 4 mg PO Q6H PRN nausea and 06/29/24 tablet vomiting #14 tabs bupropion HCl 300 mg 24 hr tablet, 300 mg PO QAM #90 tabs 07/09/24 extended release (Wellbutrin XL) Allergies Allergy/AdvReac Type Severity Reaction Status Date / Time levofloxacin (From Levaquin) Allergy ALGY-Anaphy Verified 10/14/24 18:35 laxis macadamia nut oil Allergy Unknown Verified 10/14/24 18:35 Review of Systems General: Reports: 10 or more systems reviewed and unremarkable except in HPI and below PFSH ED PFSH: Medical History Alcoholism in remission History of gastritis Diverticulosis Family history of brain aneurysm Surgical History History of esophagogastroduodenoscopy (EGD) Social History Smoking and tobacco/nicotine status: current every day tobacco/nicotine user cigarettes [ Other cigarette details: currently at almost a pack a day] Quit status (tobacco/nicotine): has tried quititng Number of times tried to quit tobacco: 5 Second hand smoke exposure: No Alcohol intake: former Year of sobriety/quit date alcohol: 3yrs Substance/Drug Use: never Lives independently: Yes Marital status: Current occupational status: unemployed Current gender identity: Male Physical Exam Const: COMMON NORMALS: no acute distress, average body habitus, patient oriented x3, no limitations, healthy appearing, alert and well nourished Neck/C-Spine: COMMON NORMALS: no JVD Chest: COMMONS NORMALS: normal inspection of the chest and normal palpation of entire chest wall Resp: COMMON NORMALS: normal respiratory effort, No retractions, No use of accessory muscles and clear to auscultation bilaterally AUSCULTATION: clear to auscultation bilaterally Cardio: COMMON NORMALS: no JVD, regular rate, regular rhythm, S1 normal heart sound present, S2 normal heart sound present, No gallops present (Cardio), No clicks present (Cardio), No murmurs present (Cardio) and No rub (Cardio) RATE: regular rate RHYTHM: regular rhythm HEART SOUNDS: S1 normal heart sound present and S2 normal heart sound present GI: COMMON NORMALS: Normal to inspection, nondistended, normoactive bowel sounds present, Soft to palpation, non-tender, No hepatosplenomegaly present and no masses PALPATION: Yes Soft to palpation and Yes No hepatosplenomegaly present : OTHER: Positive right-sided scrotal swelling pain with palpation Neuro: COMMON NORMALS: patient oriented x3 SENSORIUM/ORIENTATION: Yes alert Course Vital Signs: Vital signs: Vital Signs Temperature 97.8 F 10/14/24 18:30 Pulse Rate 72 10/14/24 23:00 Respiratory Rate 14 10/14/24 18:30 Blood Pressure 123/83 10/14/24 23:00 Pulse Oximetry 97 10/14/24 23:00 Oxygen Delivery Me thod Room Air 10/14/24 23:00 MDM - Male Medical Decision Making Urinalysis negative, ultrasound of scrotum showed large volume right hydrocele. These results was discussed with the patient. Patient wants a second opinion. Will consult case management to get second opinion in [place]. Patient be discharged home. Medical Records I reviewed the patient's medical records. Lab Data I reviewed the patient's lab results. Radiology Impressions Scrotum Ultrasound 10/14/24 21:04 IMPRESSION: 1. Large volume right hydrocele. 2. Negative for testicular torsion. No findings identified to suggest orchitis or epididymitis. Laboratory Results Urine Color Yellow (Yellow) 10/14/24 20:20 Urine Appearance Clear (CLEAR) 10/14/24 20:20 Urine pH 5.5 (5-7) 10/14/24 20:20 Ur Specific [place] 1.012 (1.005-1.030) 10/14/24 20:20 Urine Protein Negative (Negative) 10/14/24 20:20 Urine Glucose (UA) Negative (Normal) 10/14/24 20:20 Urine Ketones Negative (Negative) 10/14/24 20:20 Urine Blood Negative (Negative) 10/14/24 20:20 Urine Nitrate Negative (Negative) 10/14/24 20:20 Urine Bilirubin Negative (Negative) 10/14/24 20:20 Urine Urobilinogen 0.2 mg/dL (Negative) 10/14/24 20:20 Ur Leukocyte Esterase Negative (Negative) 10/14/24 20:20 Amorphous Sediment Not Reportable 10/14/24 20:20 All radiology interpretation(s) finalized by discharge Discharge Plan Discharge Patient Disposition: Home Clinical Impression: Hydrocele, right Condition: Stable Prescriptions: No Action sildenafil 25 mg tablet 25 mg PO DAILY PRN (Reason: sexual activity) 30 Days Qty: 30 0RF Rx Instructions: administer 30 minutes to 4 hours before activity run through 340b gabapentin 100 mg capsule 100 mg PO TID 21 Days Qty: 63 0RF doxycycline hyclate 100 mg capsule 100 mg PO BID bupropion HCl [Wellbutrin XL] 300 mg tablet extended release 24 hr 300 mg PO QAM Qty: 90 1RF hydrocodone-acetaminophen 5-325 mg tablet 1 tab PO Q6H PRN (Reason: pain) Qty: 14 0RF ondansetron 4 mg tablet,disintegrating 4 mg PO Q6H PRN (Reason: nausea and vomiting) Qty: 14 0RF Discharge Orders: Discharge ED (Routine); Ordered 10/14/24 Ordered By: Charles Montana Referrals: Kurt Cota MD [Primary Care Provider] - 1 week Patient Instructions: Hydrocele Activity Restrictions/Additional Instructions: Your ultrasound showed your right hydrocele has returned. We have consulted case management to get you another appointment with a urologist for second opinion. Activity restrictions/additional instructions: Thank you for choosing [facility] for your healthcare needs today. Please realize that you were seen in the emergency department and that we are providing you with an emergency medical screening exam and this may not be a complete and all exclusive of all testing and/or medical workup we may need to determine your element or severity of your illness. It is very important that you follow-up as instructed with your primary care provider or specialist for the additional evaluation and to discuss your medical treatment plan. You may return to the emergency department should you have concerns or if your condition changes or worsens in any way. Print Language: Venezuelan Coding Level of Care Code ED Lace Cutter for Pamela Childers
[2024-10-14 21:11] VITALS: BP 137/92; PULSE 74; O2SAT 97
[2024-10-14] MEDS: ondansetron 2 mg/ML SDV 2 mL 4 MG IM (21:11)
[2024-10-14] MEDS: ketorolac 60 mg/2 mL INJ IM (21:11)
[2024-10-14 21:16] LABS: Add Urine Microscopic? NO; Bilirubin Urine Negative (Negative); Blood Urine Negative (Negative); Glucose Urine UA Negative (Normal); Ketones Urine Negative (Negative); Leukocyte Esterase Urine Negative (Negative); Nitrate Urine Negative (Negative); Protein Urine Negative (Negative); Specific Gravity, Urine 1.012 (1.005-1.030); Urine Appearance Clear (CLEAR); Urine Color Yellow (Yellow); Urobilinogen Urine 0.2 mg/dL (Negative); pH Urine 5.5 (5-7)
[2024-10-14 21:30] VITALS: BP 131/86; O2SAT 96
[2024-10-14 21:51] LABS: Charge for UA Resulting for Rev
[2024-10-14 22:00] VITALS: BP 138/86; PULSE 71; O2SAT 97
[2024-10-14 23:00] VITALS: BP 123/83; PULSE 72; O2SAT 97
[2024-10-14 23:19] VITALS: BP 123/83; PULSE 66; O2SAT 97
== END 2024-10-14 23:23 | disposition home or self-care (01) ==
PROVIDERS: Emergency Provider Emergency Medicine; PCP Family Medicine
DX: N43.3 Hydrocele, unspecified (principal); F17.210 Nicotine dependence, cigarettes, uncomplicated
CPT/HCPCS: 76870; 81003; 96372; 99284; J1885; J2405

== ENCOUNTER 2025-05-21 20:32 | Emergency (ER) | payer SELFPAY ==
--- NOTE | 2025-05-21 20:41 | ED_ITS ---
HPI - Animal Bite General: Chief Complaint: Animal Bite Stated Complaint: Dog Bite Time Seen by Provider: 05/21/25 20:34 Source: patient Mode of arrival: ambulatory Limitations: no limitations History of Present Illness: Patient is a 45-year-old male presents to ED today for evaluation of a dog bite to his left forearm that he sustained just prior to arrival. He states he had just adopted the animal from the [facility]. He states the dog was an inside dog that lives in the [facility] with an elderly woman and that the elderly woman had recently . The dog has since been in the pen[facility]. He states the dog's last rabies shot was documented as 08/2023. The dog has been acting normally per him and can continue to be quarantined. Patient is not sure when his last tetanus was. MD complaint: animal bite Onset (ago): hour(s) Animal: dog Description of animal: household pet and appeared well Mechanism: bite Location - Extremities: Left: forearm Context: playing with animal Associated symptoms: Reports no associated symptoms; Deny chills, fever(s) or headache(s) Related Data Home Medications ?Medication ?Instructions ?Recorded ?Confirmed doxycycline hyclate 100 mg capsule 100 mg PO BID 07/0907/09/24 Previous Rx's ?Medication ?Instructions ?Recorded sildenafil 25 mg tablet 25 mg PO DAILY PRN sexual ac tivity 03/09/24 30 days #30 tabs gabapentin 100 mg capsule 100 mg PO TID 3 weeks #63 ca ps 04/07/24 hydrocodone 5 mg-acetaminophen 325 1 tab PO Q6H PRN pa in #14 tabs 06/29/24 mg tablet ondansetron 4 mg disintegrating 4 mg PO Q6H PRN nausea and 06/29/24 tablet vomiting #14 tabs bupropion HCl 300 mg 24 hr tablet, 300 mg PO QAM #30 t abs 10/15/24 extended release (Wellbutrin XL) amoxicillin 875 mg-potassium 1 tab PO BID #14 tabs clavulanate 125 mg tablet Allergies Allergy/AdvReac Type Severity Reaction Status Date / Time levofloxacin (From Levaquin) Allergy ALGY-Anaphy Verified 05/21/25 20:39 laxis macadamia nut oil Allergy Unknown Verified 05/21/25 20:39 Review of Systems Const: Denies: fever(s), chills, body aches, fatigue or malaise Card: Denies: chest pain Resp: Denies: dyspnea Musc: Reports: extremity pain; Denies: extremity swelling, joint pain, joint swelling or joint redness Skin/Breast: Reports: other (dog bite left forearm) Neuro: Denies: headache(s), numbness in extremities, weakness in extremities or sensory changes PFSH ED PFSH: Medical History Alcoholism in remission History of gastritis Diverticulosis Family history of brain aneurysm Surgical History History of esophagogastroduodenoscopy (EGD) Social History Smoking and tobacco/nicotine status: current every day tobacco/nicotine user cigarettes [ Other cigarette details: currently at almost a pack a day] Quit status (tobacco/nicotine): has tried quititng Number of times tried to quit tobacco: 5 Second hand smoke exposure: No Alcohol intake: former Year of sobriety/quit date alcohol: 3yrs Substance/Drug Use: never Lives independently: Yes Marital status: Current occupational status: unemployed Current gender identity: Male Physical Exam Const: COMMON NORMALS: no acute distress, average body habitus, no limitations, healthy appearing, alert and well nourished Extremity: COMMON NORMALS: full ROM and capillary refill normal GENERAL: Yes normal exam except as noted LEFT UPPER EXTREMITY: Yes lower arm (puncture wound/abrasion volar L forearm; no redness/streaking) Left lower arm: Yes neurovascular exam (normal) Neuro: COMMON NORMALS: moves all extremities, no focal motor deficits and no sensory deficits noted SENSORIUM/ORIENTATION: Yes alert Skin: NARRATIVE SKIN EXAM: see above MDM - Animal Bite Medical Decision Making Tetanus will be updated. Wound was copiously irrigated and dressed. He will be started on prophylactic antibiotics. Dog can be quarantined to monitor for mental status change. It has been an inside animal its entire life. I do not feel there is any indication to start rabies PEP at this time. Differential Diagnosis Likely bite by animal and dog bite Medical Records I reviewed the patient's medical records. No radiology studies performed this visit Discharge Plan Discharge Patient Disposition: Home Clinical Impression: Dog bite of left forearm Qualifiers: Encounter type: initial encounter Qualified Code(s): S51.852A - Open bite of left forearm, initial encounter Condition: Stable Prescriptions: New amoxicillin-pot clavulanate 875-125 mg tablet 1 tab PO BID Qty: 14 0RF No Action sildenafil 25 mg tablet 25 mg PO DAILY PRN (Reason: sexual activity) 30 Days Qty: 30 0RF Rx Instructions: administer 30 minutes to 4 hours before activity run through 340b gabapentin 100 mg capsule 100 mg PO TID 21 Days Qty: 63 0RF doxycycline hyclate 100 mg capsule 100 mg PO BID bupropion HCl [Wellbutrin XL] 300 mg tablet extended release 24 hr 300 mg PO QAM Qty: 30 0RF hydrocodone-acetaminophen 5-325 mg tablet 1 tab PO Q6H PRN (Reason: pain) Qty: 14 0RF ondansetron 4 mg tablet,disintegrating 4 mg PO Q6H PRN (Reason: nausea and vomiting) Qty: 14 0RF Discharge Orders: Discharge ED (Routine); Ordered 05/21/25 Ordered By: Anne Villarreal Referrals: Kurt Cota MD [Primary Care Provider, [facility]] Patient Instructions: Animal Bite (ED), Patient Portal & Trevon Instructions Activity Restrictions/Additional Instructions: As we discussed, keep your dog bite clean with warm soap and water multiple times daily and monitor for signs of infection such as redness, swelling, streaking up your arm, fevers-please seek medical re-evaluation if these occur. Please fill your antibiotics immediately and start these to help prevent infection. Tetanus has been updated. Please monitor the dog's mental status closely over the next 10 days. If dog begins to act abnormally, please reach out to your local security supervisor and return here to start the rabies postexposure prophylaxis series. Print Language: Thai Coding Level of Care Code ED Manufacturing Project Engineer for Pamela Childers
--- OUTSIDE RECORDS SUMMARY | 2025-05-21 20:41 | XMS_ITS | Patient Health Record ---
Author Organization [facility], [facility] Address [address] [place] [address] Care Team Providers Care Integration Software Developer Name Role Phone Kurt Cota MD Primary Care Provider Unavailab john Kunz Kade Unavailable [phone] ANN KADE Unavailable [phone] SILAS PONCE Unavailable [phone] Allergies Allergen (clinical drug ingredient) Drug/Non Drug Allergy documented on EMR Reaction Allergy Type Onset Date Status nuts (uncoded) Unknown Allergy Activ e Levaquin Unknown Drug Allergy Active Results Component Value Reference Range Notes Urinalysis, Routine Reviewed date:09/20/2024 03:14:08 PM Interpretation: Performing Lab: Notes/Report: Urine-Color yellow Appearance clear Glucose - Bilirubin - Ketones - Specific [place] 1.015 Occult Blood - pH 6.5 Urine Protein - Urobilinogen,Semi-Qn - Nitrite, Urine - WBC Esterase - Urinalysis, Routine Reviewed date:08/03/2024 04:17:16 PM Interpretation: Performing Lab: Notes/Report: Urine-Color yellow Appearance clear Glucose - Bilirubin - Ketones - Specific [place] 1.025 Occult Blood - pH 6.0 Urine Protein - Urobilinogen,Semi-Qn - Nitrite, Urine - WBC Esterase - US Scrotum/Testicle--[id number] Reviewed date:02/11/2025 08:50:18 PM Interpretation: Performing Lab: Notes/Report: See Below For Report US Scrotum/Testicle Read See Below For Report Reason For Referral No Information Medications Medication SIG (Take, Route, Frequency, Duration) Notes Start Date End Date Status oxyCODONE HCl 5 MG 1 tablet as needed O rally every 6 hrs Active HYDROcodone-Acetaminophen 5-325 MG 1 tablet as needed Orally every 6 hrs Active Sildenafil Citrate 25 MG 1 tablet as nee ded Orally Once a day Active Gabapentin 100 MG 1 capsule at bedtime Orally Once a day Active Wellbutrin XL 300 MG 1 tablet in the mor micki Orally Once a day Active Ondansetron 4 MG 1 tablet on the tong ue and allow to dissolve Orally Once a day Active Doxycycline Hyclate 100 MG 1 capsule Ora lly Once a day Active Social History Tobacco Use: Social History Observation Description Date Details (start date - stop date) Current Smoker NA - NA Tobacco Control (Standard) Question Answer Notes Tobacco use: Current smoker How often do you smoke cigarettes? Every day How many cigarettes a day do you smoke? 5 or les s Section Notes: Current smoker 4 or 5 a day Former alcohol use - 30+ drinks a day Current smoker 4 or 5 a day Former alcohol use - 30+ drinks a day Current smoker 4 or 5 a day Former alcohol use - 30+ drinks a day Current smoker 4 or 5 a day Former alcohol use - 30+ drinks a day Current smoker 3/4 pack a day Former alcohol use - 30+ drinks a day Vital Signs Heart Rate 69 /min 02/16/2025 Blood pressure diastolic 89 mm Hg 02/16/2025 Height-cm 177.8 cm 02/16/2025 Weight-kg 80.74 kg 02/16/2025 Height 70 in 02/16/2025 Blood pressure systolic 134 mm Hg 02/16/2025 Weight 178 lbs 02/16/2025 BMI 25.54 kg/m2 02/16/2025 Procedures Procedure Date Ordered Date Performed Result Body Sit e Bladder Scan 08/03/2024 08/03/2024 PVR 22ML Encounters Encounter Location Date Provider Diagnosis [email or web address] [address] [place] [address] 08/03/2024 Kade Pedishail Hydrocele in adult N43.3 and Right testicular pain N50.811 [email or web address] [address] [place] [address] 09/20/2024 SILAS PONCE Preop examination Z01.818 and Right hydrocele N43.3 [facility] [address] [place] [address] 09/21/2024 KADE MORALES Right hydrocele N43. 3 [facility] [address] [place] [address] 10/20/2024 KADE MORALES Right hydrocele N43. 3 [facility] [address] [place] [address] 11/12/2024 KADE MORALES Right hydrocele N43. 3 [facility] [address] [place] [address] 02/16/2025 Kade Pevril Right hydrocele N43. 3 and Scrotal pain N50.82 [facility] [address] [place] [address] 07/12/2024 KADE MORALES [facility] [address] [place] [address] 09/18/2024 Kade Pevril Pre-op evaluation Z01.818 [facility] [address] [place] [address] 09/18/2024 Kade Pevril [facility] [address] [place] [address] 10/22/2024 Kade Pevril [facility] [address] [place] [address], [place] [address] 01/13/2025 Kade Pedishail Right hydrocele N43. 3 [facility] [address] [place] [address], [place] [address] 02/09/2025 KADE MORALES Right hydrocele N43. 3 [facility] [address] [place] [address], [place] [address] 02/09/2025 Kade Pevril Assessments Encounter Date Diagnosis (ICD Code) Assessment Notes Treatment Notes Treatment Clinical Notes Section Notes 08/03/2024 Right testicular pain (ICD-10 - N50.811) Pt with normal UA and emptying. Also, patient had RAMON completed on 06/29/24. Reviewed images independently as well as reviewed official radiology report through [facility]. He had findings of large R hydrocele.. He continues to have significant testicle pain at this time even after also trialing pain medication and antibiotics. He is bothered by this and based on exam, imaging, and symptoms, we are in agreement that surgical intervention may be best with RIGHT hydrocelectomy. Given everything discussed and failed outpatient management, we discussed on how the procedure was performed, and we also had further discussion with risks/benefits/al ternatives and postprocedural expectations. Presurgical and what to expect postoperatively was also discussed. The plan is to have this done as soon as possible given symptoms. Continue conservative management with scrotal elevation and support. Discussed and reviewed case with Dr. Morales. Patient is agreeable and is eager to have done. For now, no further workup or investigation at this time, and further recommendations following the procedure. All questions that were asked, were answered. Patient satisfied with this plan. 08/03/2024 Hydrocele in adult (ICD-10 - N43.3) Pt with normal UA and emptying. Also, patient had RAMON completed on 06/29/24. Reviewed images independently as well as reviewed official radiology report through [facility]. He had findings of large R hydrocele.. He continues to have significant testicle pain at this time even after also trialing pain medication and antibiotics. He is bothered by this and based on exam, imaging, and symptoms, we are in agreement that surgical intervention may be best with RIGHT hydrocelectomy. Given everything discussed and failed outpatient management, we discussed on how the procedure was performed, and we also had further discussion with risks/benefits/al ternatives and postprocedural expectations. Presurgical and what to expect postoperatively was also discussed. The plan is to have this done as soon as possible given symptoms. Continue conservative management with scrotal elevation and support. Discussed and reviewed case with Dr. Morales. Patient is agreeable and is eager to have done. For now, no further workup or investigation at this time, and further recommendations following the procedure. All questions that were asked, were answered. Patient satisfied with this plan. 02/16/2025 Scrotal pain (ICD-10 - N50.82) I reviewed RAMON images independently, as well as radiology report. In the exam room I discussed with the patient and shown imaging to the patient that there is consistent with a R hydrocele that has been causing him pain. He had failed conservative measures. He is s/p attempted R hydrocelectomy, however, it appears that given previous hernia repair that there is still fluid descending down to the scrotum. Discussed option of setting up for repeat hydrocelectomy versus draining in the office. Consent was gained and scanned in. Procedure completed. Please see below. Dr. Morales notified of case and is agreeable with plan. Recommended on him returning care in 3-4 weeks for reexamination, however, he reports that he is losing his insurance, and will call back for f/u scheduling once he has this. For now, and through shared decision making we are in agreement with no further workup or intervention at this time with care plan, aside from what was mentioned. Patient has no other voiced concerns or questions. Patient satisfied with plan. 02/16/2025 Right hydrocele (ICD-10 - N43.3) I reviewed RAMON images independently, as well as radiology report. In the exam room I discussed with the patient and shown imaging to the patient that there is consistent with a R hydrocele that has been causing him pain. He had failed conservative measures. He is s/p attempted R hydrocelectomy, however, it appears that given previous hernia repair that there is still fluid descending down to the scrotum. Discussed option of setting up for repeat hydrocelectomy versus draining in the office. Consent was gained and scanned in. Procedure completed. Please see below. Dr. Morales notified of case and is agreeable with plan. Recommended on him returning care in 3-4 weeks for reexamination, however, he reports that he is losing his insurance, and will call back for f/u scheduling once he has this. For now, and through shared decision making we are in agreement with no further workup or intervention at this time with care plan, aside from what was mentioned. Patient has no other voiced concerns or questions. Patient satisfied with plan. 02/09/2025 Right hydrocele (ICD-10 - N43.3) 01/13/2025 Right hydrocele (ICD-10 - N43.3) 11/12/2024 Right hydrocele (ICD-10 - N43.3) He is doing much better with no further pain but he still has some hydrocele like enlargement of the right testicle and I discussed drainage versus hydrocelectomy for recurrence but he is amenable to recommended expectant management and reassessment in 3 months. 10/20/2024 Right hydrocele (ICD-10 - N43.3) He has had ongoing right inguinal and testicular pain since hernia surgery by general surgery in March 2024. After simple hydrocelectomy he has had recurrence of fluid but ongoing pain that I do not think is related to the hydrocele based upon exam and clinical findings. I have recommended a 2-week course of Bactrim along with extensive review of conservative measures. He will return in 3 weeks for reassessment. He understands with ongoing pain despite antibiotics and conservative measures it may be neuropathic in origin with limited options and possible more extensive surgery. 09/21/2024 Right hydrocele (ICD-10 - N43.3) 09/20/2024 Preop examination (ICD-10 - Z01.818) 09/20/2024 Right hydrocele (ICD-10 - N43.3) Patient scheduled for RIGHT hydrocelectomy on 09/21/[address] Morales. How the procedure was performed was discussed along with risks/benefits/alt ernatives and postprocedural expectations. Denies problems with anesthesia in the past, no new medications or diagnoses since last visit. Patient has presurgical testing today at [facility]. Urine clear. Not sent for culture due to normal UA and procedure timing tomorrow. All questions that were asked were answered and elects to proceed with procedure as scheduled. Patient will RTC postoperatively and is satisfied with plan of care. 09/18/2024 Pre-op evaluation (ICD-10 - Z01.818) Plan Of Treatment Pending Test Test Name Order Date Ultrasound : Testicle / Scrotum [id number] Basic Metabolic Panel 09/18/2024 CBC w/ Auto Diff 09/18/2024 Electrocardiogram, 12 Lead Tracing-[id number] 09/18/2024 US Scrotum/Testicle--[id number] 02/09/2025 Insurance Providers Payer Name Payer Address Payer Phone Subscriber Number Group Number Insured Name Patient Relationship to Insured Coverage Start Date Coverage End Date [facility] [address] [address] [place], [place] [phone] [id number] Rodrigo Rodgers Self - patient is the insured Medical (General) History Medical History History ICD Code RA DDD High cholesterol IBS Surgical History Surgery Date(Month/Year) multiple Hernia Repairs with mesh 03/29/20 Hydrocelectomy Hospitalization History Reason Date(Month/Year) ED for hydrocele 10/14/24 see prior sx hx
[2025-05-21] MEDS: tetanus-dipt-pertussis 0.5 mL SDV IM (20:57)
== END 2025-05-21 21:16 | disposition home or self-care (01) ==
PROVIDERS: Emergency Provider Physician Assistant; PCP Family Medicine
DX: S51.852A Open bite of left forearm, initial encounter (principal); W54.0XXA Bitten by dog, initial encounter; F17.210 Nicotine dependence, cigarettes, uncomplicated
CPT/HCPCS: 90471; 90715; 99283; J9999

== ENCOUNTER 2025-05-30 16:39 | Emergency (ER) | payer SELFPAY ==
--- OUTSIDE RECORDS SUMMARY | 2025-05-30 16:43 | XMS_ITS | Patient Health Record ---
Author Organization [facility] Address [address] [place] [address] Care Team Providers Care Air Conditioning Manager Name Role Phone Kurt Cota MD Primary Care Provider Unavailab john Kunz Kade Unavailable [phone] ANN KADE Unavailable [phone] SILAS PONCE Unavailable [phone] Allergies Allergen (clinical drug ingredient) Drug/Non Drug Allergy documented on EMR Reaction Allergy Type Onset Date Status nuts (uncoded) Unknown Allergy Activ e Levaquin Unknown Drug Allergy Active Results Component Value Reference Range Notes US Scrotum/Testicle--[id number] Reviewed date:02/11/2025 08:50:18 PM Interpretation: Performing Lab: Notes/Report: See Below For Report US Scrotum/Testicle Read See Below For Report Urinalysis, Routine Reviewed date:09/20/2024 03:14:08 PM Interpretation: Performing Lab: Notes/Report: Urine-Color yellow Appearance clear Glucose - Bilirubin - Ketones - Specific [place] 1.015 Occult Blood - pH 6.5 Urine Protein - Urobilinogen,Semi-Qn - Nitrite, Urine - WBC Esterase - Urinalysis, Routine Reviewed date:08/03/2024 04:17:16 PM Interpretation: Performing Lab: Notes/Report: Urine-Color yellow Appearance clear Glucose - Bilirubin - Ketones - Specific [place] 1.025 Occult Blood - pH 6.0 Urine Protein - Urobilinogen,Semi-Qn - Nitrite, Urine - WBC Esterase - Reason For Referral No Information Medications Medication [...] 22ML Encounters Encounter Location Date Provider Diagnosis [facility] [address] [place] [address] 08/03/2024 Kade Pedishail Hydrocele in adult N43.3 and Right testicular pain N50.811 [facility] [address] [place] [address] 09/20/2024 SILAS PONCE Preop examination Z01.818 and Right hydrocele N43.3 [facility] [address] [place] [address] 09/21/2024 KADE MORALES Right hydrocele N43. 3 [facility] [address] [place] [address] 10/20/2024 KADE MORALES Right hydrocele N43. 3 [facility] [address] [place] [address] 11/12/2024 KADE MORALES Right hydrocele N43. 3 [facility] [address] [place] [address] 02/16/2025 Kade Pevril Right hydrocele N43. 3 and Scrotal pain N50.82 [facility] [address] [place] [address] 07/12/2024 KADE MORALES [facility] [address] [place] [address] 09/18/2024 Kade Pevril Pre-op evaluation Z01.818 [facility] [address] [place] [address] 09/18/2024 Kade Pevril [facility] [address] [place] [address] 10/22/2024 Kade Pevril [facility] [address] [place] [address], [place] [address] 01/13/2025 Kade Pedishail Right hydrocele N43. 3 [facility] [address] [place] [address], [place] [address] 02/09/2025 KADE MORALES Right hydrocele N43. 3 [facility] [address] [place] [address], [place] [address] 02/09/2025 Kade Pevril Assessments Encounter Date Diagnosis (ICD Code) Assessment Notes Treatment Notes Treatment Clinical Notes Section Notes 08/03/2024 Right testicular pain (ICD-10 - N50.811) Pt with normal UA and emptying. Also, patient had RAMON completed on 06/29/24. Reviewed images independently as well as reviewed official radiology report through [facility]. He had findings of large R hydrocele.. [...] well as reviewed official radiology report through [facility]. He had findings of large R hydrocele.. [...] were answered. Patient satisfied with this plan. 09/18/2024 Pre-op evaluation (ICD-10 - Z01.818) 09/20/2024 Preop examination (ICD-10 - Z01.818) 09/20/2024 Right hydrocele (ICD-10 - N43.3) Patient scheduled for RIGHT hydrocelectomy on 09/21/[address] Morales. How the procedure was performed was discussed along with risks/benefits/alt ernatives and postprocedural expectations. Denies problems with anesthesia in the past, no new medications or diagnoses since last visit. Patient has presurgical testing today at [facility]. Urine clear. Not sent for culture due to normal UA and procedure timing tomorrow. All questions that were asked were answered and elects to proceed with procedure as scheduled. Patient will RTC postoperatively and is satisfied with plan of care. 09/21/2024 Right hydrocele (ICD-10 - N43.3) 10/20/2024 Right hydrocele (ICD-10 - N43.3) He [...] limited options and possible more extensive surgery. 11/12/2024 Right hydrocele (ICD-10 - N43.3) He is doing much better with no further pain but he still has some hydrocele like enlargement of the right testicle and I discussed drainage versus hydrocelectomy for recurrence but he is amenable to recommended expectant management and reassessment in 3 months. 01/13/2025 Right hydrocele (ICD-10 - N43.3) 02/09/2025 Right hydrocele (ICD-10 - N43.3) 02/16/2025 Scrotal pain (ICD-10 - N50.82) I [...] concerns or questions. Patient satisfied with plan. Plan Of Treatment Pending Test Test Name Order Date Ultrasound : Testicle / Scrotum [id number] Basic Metabolic Panel 09/18/2024 CBC w/ Auto Diff 09/18/2024 Electrocardiogram, 12 Lead Tracing-30482 09/18/2024 Scrotum/Testicle--[id number] 02/09/2025 Insurance Providers Payer Name Payer Address Payer Phone Subscriber Number Group Number Insured Name Patient Relationship to Insured Coverage Start Date Coverage End Date [facility] [address] [address] [place], [place] [phone] [id number] Rodrigo Rodgers Self - patient is the insured Medical (General) History Medical History History ICD Code RA DDD High cholesterol IBS Surgical History Surgery Date(Month/Year) multiple Hernia Repairs with mesh 03/29/20 Hydrocelectomy Hospitalization History Reason Date(Month/Year) ED for hydrocele 10/14/24 see prior sx hx
[2025-05-30 16:50] VITALS: BP 140/92; PULSE 87; RESP 16; TEMP 36.9; O2SAT 97
--- NOTE | 2025-05-30 17:02 | USR_ITS ---
PROCEDURE INFORMATION: Exam: US Scrotum Exam date and time: 05/30/2025 5:20 PM Age: 45 years old Clinical indication: Swelling, testicles or scrotum; Prior surgery; Surgery date: 6+ months; Surgery type: Unknown time frame- PT states that he has had fluid drained in the past from prior hydroceles-no other testicular surgery mentioned; Additional info: Testicular swelling TECHNIQUE: Imaging protocol: Real-time ultrasound of the scrotum and contents with color Doppler and image documentation. COMPARISON: US scrotum [id number] 10/14/2024 10:20 PM FINDINGS: Right testicle: Normal. No mass. Normal color Doppler and arterial waveforms. No torsion. Left testicle: Normal. No mass. Normal color Doppler and arterial waveforms. No torsion. Epididymides: The right epididymis is not clearly visualized. The left epididymis is normal in appearance. Scrotum/soft tissues: There is a large right hydrocele. Estimated volume 135 mL. US/US scrotum [id number] IMPRESSION: 1. Large right hydrocele. 2. Unremarkable testicles. 3. Right epididymis not visualized.
--- NOTE | 2025-05-30 17:24 | W.ED.MALEGU ---
HPI - Male Genitourinary General: Chief complaint: Urogenital-Male Stated complaint: abd pain, vomiting bile Time Seen by Provider: 05/30/25 17:12 Source: patient Mode of arrival: ambulatory Limitations: no limitations History of Present Illness: Patient is a 45-year-old male who presents to the emergency department complaining of testicular swelling and lower abdominal pain. Reportedly has a history of hydrocele and has actually underwent hydrocelectomy as he sees urology, but has not seen them for a while. States that his scrotum has been swelling again and he even attempted to drain it at home by poking it with a needle. He notes that it has been approximately 2 months since it was previously drained/removed, and has only gotten worse. Pain in the suprapubic region of his abdomen as well, no urinary symptoms. States that he has been nauseous and has vomited a couple times due to the pain. Pain currently a 10/10. He is afebrile, rest of his vital stable. No penile discharge. No fevers at home. MD Complaint: other (scrotal swelling/testicular pain) Onset (ago): month(s) Duration: constant and progressively worsening Location: right testicle and left testicle Associated symptoms: Reports nausea and vomiting; Deny dysuria or hematuria Related Data Home Medications ?Medication ?Instructions ?Recorded ?Confirmed doxycycline hyclate 100 mg capsule 100 mg PO BID 07/09/24 07/09/24 Previous Rx's ?Medication ?Instructions ?Recorded sildenafil 25 mg tablet 25 mg PO DAILY PRN sexual activity 03/09/24 30 days #30 tabs gabapentin 100 mg capsule 100 mg PO TID 3 weeks #63 caps 04/07/24 hydrocodone 5 mg-acetaminophen 325 1 tab PO Q6H PRN pain #14 tabs 06/29/24 mg tablet ondansetron 4 mg disintegrating 4 mg PO Q6H PRN nausea and 06/29/24 tablet vomiting #14 tabs bupropion HCl 300 mg 24 hr tablet, 300 mg PO QAM #30 tabs 10/15/24 extended release (Wellbutrin XL) amoxicillin 875 mg-potassium 1 tab PO BID #14 tabs 05/21/25 clavulanate 125 mg tablet hydrocodone 7.5 mg-acetaminophen 1 tab PO Q8H PRN pain #15 tabs 05/30/25 325 mg tablet ondansetron 4 mg disintegrating 4 mg PO TID PRN nausea and 05/30/25 tablet vomiting #30 tabs Allergies Allergy/AdvReac Type Severity Reaction Status Date / Time levofloxacin (From Levaquin) Allergy ALGY-Anaphy Verified 05/21/25 20:39 laxis macadamia nut oil Allergy Unknown Verified 05/21/25 20:39 Review of Systems General: Reports: 10 or more systems reviewed and unremarkable except in HPI and below Const: Denies: fever(s), chills, change in appetite, change in weight or diaphoresis ENMT: Denies: throat pain or hoarseness Card: Denies: chest pain, palpitations or lightheadedness Resp: Denies: dyspnea, productive cough or wheezing GI: Reports: abdominal pain, nausea and vomiting; Denies: diarrhea, constipation, bloating, change in stool character or hematochezia : Reports: testicular pain and scrotal swelling; Denies: flank pain, difficulty urinating, dysuria, urinary frequency, urinary urgency, hematuria or penile discharge Musc: Denies: neck pain or back pain Skin/Breast: Denies: rash or new lesions Neuro: Denies: headache(s) or dizziness PFSH ED PFSH: Medical History Alcoholism in remission History of gastritis Diverticulosis Family history of brain aneurysm Surgical History History of esophagogastroduodenoscopy (EGD) Social History Smoking and tobacco/nicotine status: current every day tobacco/nicotine user cigarettes [ Other cigarette details: currently at almost a pack a day] Quit status (tobacco/nicotine): has tried quititng Number of times tried to quit tobacco: 5 Second hand smoke exposure: No Alcohol intake: former Year of sobriety/quit date alcohol: 3yrs Substance/Drug Use: never Lives independently: Yes Marital status: Current occupational status: unemployed Current gender identity: Male Physical Exam Const: COMMON NORMALS: no acute distress, average body habitus, patient oriented x3, no limitations, healthy appearing, alert and well nourished GENERAL APPEARANCE: cooperative ORIENTATION/CONSCIOUSNESS: Yes awake OTHER: Nontoxic, he is covered head to toe in charcoal from occupation Eye: COMMON NORMALS: Equal, round and reactive pupils present, EOMs intact bilaterally, conjunctivae normal and normal visual almendarez by confrontation CONJUNCTIVA: Yes conjunctivae normal PUPIL: Yes Equal, round and reactive pupils present Neck/C-Spine: COMMON NORMALS: full ROM, supple and no meningeal signs Resp: COMMON NORMALS: normal respiratory effort, No retractions, No use of accessory muscles and clear to auscultation bilaterally AUSCULTATION: clear to auscultation bilaterally, no crackles, no rales, no rhonchi and no wheezes Cardio: COMMON NORMALS: regular rate, regular rhythm, No gallops present (Cardio), No clicks present (Cardio), No murmurs present (Cardio), No rub (Cardio) and Peripheral pulses 2+ throughout RATE: regular rate RHYTHM: regular rhythm PERIPHERAL PULSES: Peripheral pulses 2+ throughout GI: COMMON NORMALS: Normal to inspection, nondistended, normoactive bowel sounds present, Soft to palpation, No hepatosplenomegaly present and no masses AUSCULTATION: Yes normoactive bowel sounds PALPATION: Yes Soft to palpation, Yes Tenderness to palpation present (GI) (Suprapubic), No Guarding due to palpation present (GI), No Rigid due to palpation and Yes No hepatosplenomegaly present RECTAL EXAM: Yes deferred : OTHER: Scrotal edema, right worse than left. Easily reproducible tenderness palpation of the right testicle. Extremity: COMMON NORMALS: normal to inspection and full ROM Neuro: COMMON NORMALS: patient oriented x3, moves all extremities, no focal motor deficits and no sensory deficits noted SENSORIUM/ORIENTATION: Yes alert MENINGEAL SIGNS: Yes no meningeal signs Psych: COMMON NORMALS: mental status grossly normal, cooperative and speech normal SPEECH: Yes normal speech Skin: COMMON NORMALS: no rashes or lesions noted GENERAL SKIN EXAM: no rashes or lesions noted Course Vital Signs: Vital signs: Vital Signs Temperature 98.5 F 05/30/25 16:50 Pulse Rate 87 05/30/25 16:50 Respiratory Rate 16 05/30/25 16:50 Blood Pressure 140/92 05/30/25 16:50 Pulse Oximetry 97 05/30/25 16:50 Oxygen Delivery Me thod Room Air 05/30/25 16:50 MDM - Male Medical Decision Making Patient presenting with scrotal swelling and testicular pain, history of hydrocele for which she has seen urology and has had procedural drainage before in the past. On exam there was a large swollen right testicle with scrotal edema, and lower abdominal tenderness to palpation. CBC CMP and urinalysis are negative. Scrotal ultrasound showing a large right hydrocele, with no other acute emergent findings. Symptoms controlled here in the emergency department, will send pain medications pharmacy but he is ultimately urged to follow-up with his urologist for further drainage and management of his hydrocele. Patient agrees with this plan, he is given return precautions. Lab Data 05/30/25 17:52 05/30/25 17:52 Radiology Impressions Scrotum Ultrasound 05/30/25 17:02 IMPRESSION: 1. Large right hydrocele. 2. Unremarkable testicles. 3. Right epididymis not visualized. Laboratory Results WBC 8.44 10^3/uL (3.29-11.43) 05/30/25 17:52 RBC 4.38 10^6/uL (3.85-5.65) 05/30/25 17:52 Hgb 14.40 g/dL (11.27-16.99) 05/30/25 17:52 Hct 42.4 % (37-53) 05/30/25 17:52 MCV 96.8 fl (82-101) 05/30/25 17:52 MCH 32.9 pg (27-33) 05/30/25 17:52 MCHC 34.0 g/dL (30-55) 05/30/25 17:52 RDW 13.2 % (12.1-15.1) 05/30/25 17:52 Plt Count 160 10^3/cmm (157-399) 05/30/25 17:52 MPV 11.7 fL (7.4-10.4) H 05/30/25 17:52 Neut % (Auto) 60.7 % 05/30/25 17:52 Lymph % (Auto) 26.9 % 05/30/25 17:52 [place] % (Auto) 9.7 % 05/30/25 17:52 Eos % (Auto) 2.0 % 05/30/25 17:52 Baso % (Auto) 0.5 % 05/30/25 17:52 Neut # (Auto) 5.12 10^3/uL (1.8-7.7) 05/30/25 17:52 Lymph # (Auto) 2.3 10^3/uL (0.8-4.8) 05/30/25 17:52 [place] # (Auto) 0.8 10^3/uL (0.2-0.9) 05/30/25 17:52 Eos # (Auto) 0.2 10^3/uL (0.0-0.8) 05/30/25 17:52 Baso # (Auto) 0.0 10^3/uL (0.0-0.1) 05/30/25 17:52 Nucleated RBC % (auto) 0 % 05/30/25 17:52 Nucleated RBCs # 0.0 /100WBC 05/30/25 17:52 Sodium 138 mmol/L (136-145) 05/30/25 17:52 Potassium 4.0 mmol/L (3.5-5.1) 05/30/25 17:52 Chloride 103 mmol/L (98-107) 05/30/25 17:52 Carbon Dioxide 22 mmol/L (22-29) 05/30/25 17:52 Anion Gap 17.0 (5-19) 05/30/25 17:52 BUN 18 mg/dL (6-20) 05/30/25 17:52 Creatinine 0.9 mg/dL (0.7-1.2) 05/30/25 17:52 GFR Calculation 90.8 mL/min (90-130) 05/30/25 17:52 Glucose 75 mg/dL (65-115) 05/30/25 17:52 Calculated Osmolality 287 mOsm/kg (285-295) 05/30/25 17:52 Calcium 9.1 mg/dL (8.5-10.5) 05/30/25 17:52 Total Bilirubin 0.5 mg/dL (0.15-1.2) 05/30/25 17:52 AST 41 U/L (0-40) H 05/30/25 17:52 ALT 39 U/L (0-41) 05/30/25 17:52 Alkaline Phosphatase 56 U/L (40-130) 05/30/25 17:52 Total Protein 6.8 g/dL (6.6-8.7) 05/30/25 17:52 Albumin 4.3 g/dL (3.5-5.2) 05/30/25 17:52 Globulin 2.5 g/dL (1.3-4.6) 05/30/25 17:52 Urine Color Yellow (Yellow) 05/30/25 17:35 Urine Appearance Clear (CLEAR) 05/30/25 17:35 Urine pH 5.5 (5-7) 05/30/25 17:35 Ur Specific [place] 1.033 (1.005-1.030) H 05/30/25 17:35 Urine Protein Negative (Negative) 05/30/25 17:35 Urine Glucose (UA) Negative (Normal) 05/30/25 17:35 Urine Ketones 1+ (Negative) H 05/30/25 17:35 Urine Blood Negative (Negative) 05/30/25 17:35 Urine Nitrate Negative (Negative) 05/30/25 17:35 Urine Bilirubin Negative (Negative) 05/30/25 17:35 Urine Urobilinogen 1.0 mg/dL (Negative) 05/30/25 17:35 Ur Leukocyte Esterase Negative (Negative) 05/30/25 17:35 Amorphous Sediment Not Reportable 05/30/25 17:35 All radiology interpretation(s) finalized by discharge Discharge Plan Discharge Patient Disposition: Home Clinical Impression: Hydrocele, right Condition: Stable Prescriptions: New hydrocodone-acetaminophen 7.5-325 mg tablet 1 tab PO Q8H PRN (Reason: pain) Qty: 15 0RF ondansetron 4 mg tablet,disintegrating 4 mg PO TID PRN (Reason: nausea and vomiting) Qty: 30 0RF No Action sildenafil 25 mg tablet 25 mg PO DAILY PRN (Reason: sexual activity) 30 Days Qty: 30 0RF Rx Instructions: administer 30 minutes to 4 hours before activity run through 340b gabapentin 100 mg capsule 100 mg PO TID 21 Days Qty: 63 0RF doxycycline hyclate 100 mg capsule 100 mg PO BID bupropion HCl [Wellbutrin XL] 300 mg tablet extended release 24 hr 300 mg PO QAM Qty: 30 0RF hydrocodone-acetaminophen 5-325 mg tablet 1 tab PO Q6H PRN (Reason: pain) Qty: 14 0RF ondansetron 4 mg tablet,disintegrating 4 mg PO Q6H PRN (Reason: nausea and vomiting) Qty: 14 0RF amoxicillin-pot clavulanate 875-125 mg tablet 1 tab PO BID Qty: 14 0RF Discharge Orders: Discharge ED (Routine); Ordered 05/30/25 Ordered By: Enrike Grier Referrals: Kurt Cota MD [Primary Care Provider, [facility]] Patient Instructions: Opioid Safety, Pain Management, Patient Portal & [place]von Instructions Activity Restrictions/Additional Instructions: Take hydrocodone for pain. Zofran for nausea. Please call your urologist in the morning to schedule an appointment to get in for drainage of your hydrocele. Please return with any fever, worsening pain, or any other major concerns that you have. Your work note is attached. Stand Alone Forms: Work/School Release Print Language: Citizen Of [place] Coding Level of Care Code ED Loan Review Officer for Pamela Childers
[2025-05-30 17:54] LABS: Add Urine Microscopic? NO
[2025-05-30 18:04] LABS: Glucose Urine UA Negative (Normal); Nitrate Urine Negative (Negative)
[2025-05-30] MEDS: HYDROcodone-acetaminophen 7.5-325 mg Tablet 1 TAB PO (18:11)
[2025-05-30 18:17] LABS: Hematocrit 42.4 % (37-53); Hemoglobin 14.40 g/dL (11.27-16.99); Mean Corpuscular HGB Conc 34.0 g/dL (30-55); Mean Corpuscular Hemoglobin 32.9 pg (27-33); Mean Corpuscular Volume 96.8 fl (82-101); Nucleated Red Blood Cells % 0 %; Platelet Count 160 10^3/cmm (157-399); Red Blood Count 4.38 10^6/uL (3.85-5.65); White Blood Count 8.44 10^3/uL (3.29-11.43)
[2025-05-30 18:17] LABS: Specific Gravity, Urine 1.033 (1.005-1.030)
[2025-05-30 18:18] LABS: Charge for UA Resulting for Rev
[2025-05-30 18:37] LABS: Alanine Aminotransferase 39 U/L (0-41); Albumin Level 4.3 g/dL (3.5-5.2); Alkaline Phosphatase 56 U/L (40-130); Aspartate Amino Transferase 41 U/L (0-40); Blood Urea Nitrogen 18 mg/dL (6-20); Calcium 9.1 mg/dL (8.5-10.5); Carbon Dioxide 22 mmol/L (22-29); Chloride 103 mmol/L (98-107); Creatinine Clr Calc Pharmacy 112.4913; Globulin 2.5 g/dL (1.3-4.6); Glucose 75 mg/dL (65-115); Osmolality Calculated 287 mOsm/kg (285-295); Sodium 138 mmol/L (136-145); Total Protein 6.8 g/dL (6.6-8.7)
[2025-05-30 18:51] LABS: Anion Gap 17.0 (5-19); Potassium 4.0 mmol/L (3.5-5.1)
== END 2025-05-30 19:08 | disposition home or self-care (01) ==
PROVIDERS: Emergency Provider Physician Assistant; PCP Family Medicine
DX: N43.3 Hydrocele, unspecified (principal); F17.210 Nicotine dependence, cigarettes, uncomplicated
CPT/HCPCS: 36415; 76870; 80053; 81003; 85025; 99284; J9999

== ENCOUNTER 2025-08-23 10:14 | Emergency (ER) | payer OTHER, SELFPAY ==
--- NOTE | 2025-08-23 10:17 | XR_ITS ---
WS: [id number] Right knee, 3 views, 08/23/2025 Clinical Data: injury Comparison: Right knee, 03/23/2019 Findings: No fractures or dislocations are seen. The joint spaces are normal. The patella is intact. The soft tissues are unremarkable. XR/XR knee RT 3V* [id number] Impression: Negative right knee.
[2025-08-23 10:22] VITALS: BP 149/99; PULSE 78; RESP 18; TEMP 36.7; O2SAT 98; BMI 24.3
--- NOTE | 2025-08-23 10:24 | W.ED.LOWEXIN ---
HPI - Extremity Injury (Lower) General: Chief Complaint: Extremity Injury, Lower Stated Complaint: fell right knee pain Time Seen by Provider: 08/23/25 10:20 Source: patient Mode of arrival: ambulatory Limitations: no limitations History of Present Illness: 45-year-old male states he was at work yesterday and slipped and fell states he landed directly on his right knee on concrete he does have a bruise over his patella some pain medial portion and anterior portion of the knee. States he been able to ambulate but does have some pain with ambulation along with flexion. He denies feeling any pop he denies any other injuries. Rates his pain currently 6 out of 10 Related Data Home Medications ?Medication ?Instructions ?Recorded ?Confirmed doxycycline hyclate 100 mg capsule 100 mg PO BID 07/09/24 07/09/24 Previous Rx's ?Medication ?Instructions ?Recorded sildenafil 25 mg tablet 25 mg PO DAILY PRN sexual activity 03/09/24 30 days #30 tabs gabapentin 100 mg capsule 100 mg PO TID 3 weeks #63 caps 04/07/24 hydrocodone 5 mg-acetaminophen 325 1 tab PO Q6H PRN pain #14 tabs 06/29/24 mg tablet ondansetron 4 mg disintegrating 4 mg PO Q6H PRN nausea and 06/29/24 tablet vomiting #14 tabs bupropion HCl 300 mg 24 hr tablet, 300 mg PO QAM #30 tabs 10/15/24 extended release (Wellbutrin XL) amoxicillin 875 mg-potassium 1 tab PO BID #14 tabs 05/21/25 clavulanate 125 mg tablet hydrocodone 7.5 mg-acetaminophen 1 tab PO Q8H PRN pain #15 tabs 05/30/25 325 mg tablet ondansetron 4 mg disintegrating 4 mg PO TID PRN nausea and 05/30/25 tablet vomiting #30 tabs naproxen 500 mg tablet (Naprosyn) 500 mg PO BID PRN pain #20 tabs 08/23/25 Allergies Allergy/AdvReac Type Severity Reaction Status Date / Time levofloxacin (From Levaquin) Allergy ALGY-Anaphy Verified 05/21/25 20:39 laxis macadamia nut oil Allergy Unknown Verified 05/21/25 20:39 Review of Systems Musc: Reports: extremity pain PFSH ED PFSH: Medical History Alcoholism in remission History of gastritis Diverticulosis Family history of brain aneurysm Surgical History History of esophagogastroduodenoscopy (EGD) Social History Smoking and tobacco/nicotine status: current every day tobacco/nicotine user cigarettes [ Other cigarette details: currently at almost a pack a day] Quit status (tobacco/nicotine): has tried quititng Number of times tried to quit tobacco: 5 Second hand smoke exposure: No Alcohol intake: former Year of sobriety/quit date alcohol: 3yrs Substance/Drug Use: never Lives independently: Yes Marital status: Current occupational status: unemployed Current gender identity: Male Physical Exam Const: COMMON NORMALS: no acute distress, patient oriented x3 and healthy appearing HENMT: COMMON NORMALS: normocephalic and atraumatic HEAD & SCALP: normocephalic and atraumatic Neck/C-Spine: COMMON NORMALS: full ROM and supple Chest: COMMONS NORMALS: normal inspection of the chest Resp: COMMON NORMALS: normal respiratory effort Cardio: COMMON NORMALS: regular rate RATE: regular rate Extremity: COMMON NORMALS: full ROM NARRATIVE EXTREMITY EXAM: Contusion to right knee no obvious deformity has some tenderness over his patella Neuro: COMMON NORMALS: patient oriented x3, moves all extremities and no focal motor deficits Psych: COMMON NORMALS: mental status grossly normal, Normal thought process present and cooperative THOUGHT PROCESS: Normal thought process present Skin: COMMON NORMALS: no rashes or lesions noted and no wounds GENERAL SKIN EXAM: no rashes or lesions noted Course Vital Signs: Vital signs: Vital Signs Temperature 98.1 F 08/23/25 10:22 Pulse Rate 78 08/23/25 10:22 Respiratory Rate 18 08/23/25 10:42 Blood Pressure 149/99 08/23/25 10:22 Pulse Oximetry 99 08/23/25 10:42 Oxygen Delivery Me thod Room Air 08/23/25 10:42 MDM - Extremity Injury (Lower) Medical Decision Making Patient presents here with right knee injury differential includes fracture, contusion, dislocation. X-ray here shows no signs of dislocation or fracture his exam here is benign likely had contusion he is to weight-bear as tolerated will prescribe Naprosyn he is follow-up with his PCP and return if worsening he understands agrees to plan. Medical Records I reviewed the patient's medical records. XR interpretation done by ED provider, pending radiology final review ED provider radiology interpretation(s): xr r knee: no acute fx Discharge Plan Discharge Patient Disposition: Home Clinical Impression: Contusion of right knee Qualifiers: Encounter type: initial encounter Qualified Code(s): S80.01XA - Contusion of right knee, initial encounter Condition: Stable Prescriptions: New naproxen [Naprosyn] 500 mg tablet 500 mg PO BID PRN (Reason: pain) Qty: 20 0RF No Action sildenafil 25 mg tablet 25 mg PO DAILY PRN (Reason: sexual activity) 30 Days Qty: 30 0RF Rx Instructions: administer 30 minutes to 4 hours before activity run through 340b gabapentin 100 mg capsule 100 mg PO TID 21 Days Qty: 63 0RF doxycycline hyclate 100 mg capsule 100 mg PO BID bupropion HCl [Wellbutrin XL] 300 mg tablet extended release 24 hr 300 mg PO QAM Qty: 30 0RF hydrocodone-acetaminophen 5-325 mg tablet 1 tab PO Q6H PRN (Reason: pain) Qty: 14 0RF ondansetron 4 mg tablet,disintegrating 4 mg PO Q6H PRN (Reason: nausea and vomiting) Qty: 14 0RF amoxicillin-pot clavulanate 875-125 mg tablet 1 tab PO BID Qty: 14 0RF hydrocodone-acetaminophen 7.5-325 mg tablet 1 tab PO Q8H PRN (Reason: pain) Qty: 15 0RF ondansetron 4 mg tablet,disintegrating 4 mg PO TID PRN (Reason: nausea and vomiting) Qty: 30 0RF Discharge Orders: Discharge ED (Routine); Ordered 08/23/25 Ordered By: Reyes Seay Referrals: Kurt Cota MD [Primary Care Provider, Family Practice] - 4-7 days Discharge Diet: Advance as tolerated Discharge Activity: Resume usual activity Patient Instructions: Contusion in Adults (ED) Print Language: Vietnamese Coding Level of Care Code ED Hospice Registered Nurse for Pamela Childers
[2025-08-23] MEDS: HYDROcodone-acetaminophen 5-325 mg Tablet 1 TAB PO (10:25)
[2025-08-23 10:42] VITALS: RESP 18; O2SAT 99
--- OUTSIDE RECORDS SUMMARY | 2025-08-23 10:44 | XMS_ITS | Patient Health Record ---
Author Organization [facility] Address [address] [place] [address] Care Team Providers Care Business Trainer Name Role Phone Kurt Cota MD Primary Care Provider Unavailab john Kunz Kade Unavailable [phone] ANN KADE Unavailable [phone] SILAS PONCE Unavailable [phone] Allergies Allergen (clinical drug ingredient) Drug/Non Drug Allergy documented on EMR Reaction Allergy Type Onset Date Status nuts (uncoded) Unknown Allergy Activ e Levaquin Unknown Drug Allergy Active Results Component Value Reference Range Notes US Scrotum/Testicle--[id number] Reviewed date:02/11/2025 08:50:18 PM Interpretation: Performing Lab: Notes/Report: See Below For Report US Scrotum/Testicle Read See Below For Report Urinalysis, Routine Reviewed date:09/20/2024 03:14:08 PM Interpretation: Performing Lab: Notes/Report: Urine-Color yellow Appearance clear Glucose - Bilirubin - Ketones - Specific Hudson 1.015 Occult Blood - pH 6.5 Urine Protein - Urobilinogen,Semi-Qn - Nitrite, Urine - WBC Esterase - Reason For Referral No Information Medications Medication SIG (Take, Route, Frequency, Duration) Notes Start Date End Date Status Wellbutrin XL 300 MG Tablet Extended Release 24 Hour 1 tablet in the morning Orally Once a day Not-Taking Sildenafil Citrate 25 MG Tablet 1 tablet as needed Orally Once a day Active Ondansetron 4 MG Tablet Disintegrating 1 tablet on the tongue and allow to dissolve Orally Once a day Active Gabapentin 100 MG Capsule 1 capsule at b edtime Orally Once a day Not-Taking Social History Tobacco Use: Social History Observation Description Date Details (start date - stop date) Current Smoker NA - NA Social History Drug/Alcohol: Social Info Question Answer Notes AUDIT-C (Standard) Did you have a drink containing alcohol in the past year? Yes How often did you have a drink containing alcohol in the past year? 2 to 3 times a week (3 points) How many drinks did you have on a typical day when you were drinking in the past year? 1 or 2 drinks (0 point) How often did you have six or more drinks on one occasion in the past year? Never (0 point) Points 3 Interpretation Negative Tobacco Use: Social Info Question Answer Notes Tobacco Control (Standard) Tobacco use: Current smoker How often do you smoke cigarettes? Every day How many cigarettes a day do you smoke? 5 or less Additional Details Category Social Info Options Details Drug/Alcohol: Do you smoke marijuana? Den ies Section Notes: Current smoker 4 or 5 [...] drinks a day Vital Signs Heart Rate 75 /min 07/14/2025 Height-cm 177.8 cm 07/14/2025 Blood pressure diastolic 91 mm Hg 07/14/2025 Weight-kg 84.37 kg 07/14/2025 Height 70 in 07/14/2025 Blood pressure systolic 141 mm Hg 07/14/2025 Weight 186 lbs 07/14/2025 BMI 26.69 kg/m2 07/14/2025 Encounters Encounter Location Date Provider Diagnosis [facility] [address] [place] [address] 09/20/2024 SILAS PONCE Preop examination Z01.818 and Right hydrocele N43.3 [facility] [address] [place] [address] 09/21/2024 KADE MORALES Right hydrocele N43. 3 [facility] [address] [place] [address] 10/20/2024 KADE MORALES Right hydrocele N43. 3 [facility] [address] [place] [address] 11/12/2024 KADE MORALES Right hydrocele N43. 3 [facility] [address] [place] [address] 02/16/2025 Kade Pevril Right hydrocele N43. 3 and Scrotal pain N50.82 [facility] [address] [place] [address] 05/31/2025 Kade Pevril Right hydrocele N43. 3 and Scrotal pain N50.82 [facility] [address] [place] [address] 07/14/2025 Kade Pevril Right hydrocele N43. 3 and Scrotal pain N50.82 [facility] [address] [place] [address] 09/18/2024 Kade Pevril Pre-op evaluation Z01.818 [facility] [address] [place] [address] 09/18/2024 Kade Pevril [facility] [address] [place] [address] 10/22/2024 Kade Pevril [facility] [address] [place] [address] 01/13/2025 Kade Pevril Right hydrocele N43. 3 [facility] [address] [place] [address] 02/09/2025 KADE MORALES Right hydrocele N43. 3 [facility] [address] [place] [address] 02/09/2025 Kade Pevril Assessments Encounter Date Diagnosis (ICD Code) Assessment Notes Treatment Notes Treatment Clinical Notes Section Notes 09/18/2024 Pre-op evaluation (ICD-10 - Z01.818) 09/20/2024 [...] has presurgical testing today at [facility]. Urine clear. Not sent for culture due [...] concerns or questions. Patient satisfied with plan. 05/31/2025 Right hydrocele (ICD-10 - N43.3) I again reviewed RAMON images independently, as well as radiology report. In the exam room I discussed with the patient and shown imaging to the patient that there is consistent with a R hydrocele that has been causing him pain. APpears infected today. Recommended starting bactrim. He recieved IM rocephin today. Recommended that he not do any further self/at home hydrocele aspiration. He had failed conservative measures. He is s/p attempted R hydrocelectomy, however, it appears that given previous hernia repair that there is still fluid descending down to the scrotum. Discussed option of setting up for repeat hydrocelectomy versus draining in the office, and he will return care in 6 weeks for reexamination and possible in office aspiration. Ultimately, he needs to go to the OR. But is having insurance and job issues at the moment, and unsure of when he would be able to move forward with this. For now, and through shared decision making we are in agreement with no further workup or intervention at this time with care plan, aside from what was mentioned. Patient has no other voiced concerns or questions. Patient satisfied with plan. 07/14/2025 Right hydrocele (ICD-10 - N43.3) I again reviewed previous RAMON images independently, as well as radiology report. In the exam room I discussed with the patient and shown imaging to the patient that there is consistent with a R hydrocele that has been causing him pain. He has completed previous course of antibiotics and noted improved symptoms, however, stil eager to move forward with in office hydrocele aspiration. Procedure was completed after verbal and written consent. Risks discussed. Patient tolerated well. Was able to aspirate only 30cc. Please see procedure note. He is asking for pain medication. Prescription sent. He had failed conservative measures. He is s/p attempted R hydrocelectomy, however, it appears that given previous hernia repair that there is still fluid descending down to the scrotum. Discussed option of setting up for repeat hydrocelectomy versus draining in the office, and he will return care in 6-8 weeks for reexamination and possible in office aspiration. Ultimately, he needs to go to the OR. But is having insurance and job issues at the moment, and unsure of when he would be able to move forward with this. For now, and through shared decision making we are in agreement with no further workup or intervention at this time with care plan, aside from what was mentioned. Patient has no other voiced concerns or questions. Patient satisfied with plan. 07/14/2025 Scrotal pain (ICD-10 - N50.82) I again reviewed previous RAMON images independently, as well as radiology report. In the exam room I discussed with the patient and shown imaging to the patient that there is consistent with a R hydrocele that has been causing him pain. He has completed previous course of antibiotics and noted improved symptoms, however, stil eager to move forward with in office hydrocele aspiration. Procedure was completed after verbal and written consent. Risks discussed. Patient tolerated well. Was able to aspirate only 30cc. Please see procedure note. He is asking for pain medication. Prescription sent. He had failed conservative measures. He is s/p attempted R hydrocelectomy, however, it appears that given previous hernia repair that there is still fluid descending down to the scrotum. Discussed option of setting up for repeat hydrocelectomy versus draining in the office, and he will return care in 6-8 weeks for reexamination and possible in office aspiration. Ultimately, he needs to go to the OR. But is having insurance and job issues at the moment, and unsure of when he would be able to move forward with this. For now, and through shared decision making we are in agreement with no further workup or intervention at this time with care plan, aside from what was mentioned. Patient has no other voiced concerns or questions. Patient satisfied with plan. 05/31/2025 Scrotal pain (ICD-10 - N50.82) I again reviewed RAMON images independently, as well as radiology report. In the exam room I discussed with the patient and shown imaging to the patient that there is consistent with a R hydrocele that has been causing him pain. APpears infected today. Recommended starting bactrim. He recieved IM rocephin today. Recommended that he not do any further self/at home hydrocele aspiration. He had failed conservative measures. He is s/p attempted R hydrocelectomy, however, it appears that given previous hernia repair that there is still fluid descending down to the scrotum. Discussed option of setting up for repeat hydrocelectomy versus draining in the office, and he will return care in 6 weeks for reexamination and possible in office aspiration. Ultimately, he needs to go to the OR. But is having insurance and job issues at the moment, and unsure of when he would be able to move forward with this. For now, and through shared decision making we are in agreement with no further workup or intervention at this time with care plan, aside from what was mentioned. Patient has no other voiced concerns or questions. Patient satisfied with plan. Plan Of Treatment Pending Test Test Name Order Date Ultrasound : Testicle / Scrotum 28939 Basic Metabolic Panel 09/18/2024 CBC w/ Auto Diff 09/18/2024 Electrocardiogram, 12 Lead Tracing-40640 09/18/2024 US Scrotum/Testicle--[id number] 02/09/2025 Next Appt Details Provider Name:KADE Moyer, 09/27/2025 09:30:00 AM, [address] [place], [address], Medications Administered Medication Instructions Date of Administration Dosage Notes Rocephin 05/31/2025 1 g [facility] [phone] Medical (General) History Medical History History ICD Code RA DDD High cholesterol IBS Surgical History Surgery Date(Month/Year) multiple Hernia Repairs with mesh 03/29/20 24 Hydrocelectomy Hospitalization History Reason Date(Month/Year) ED for hydrocele 10/14/24 see prior sx hx
[2025-08-23 10:51] VITALS: BP 138/93; PULSE 74; O2SAT 96
== END 2025-08-23 10:53 | disposition home or self-care (01) ==
PROVIDERS: Emergency Provider Emergency Medicine; PCP Family Medicine
DX: S80.01XA Contusion of right knee, initial encounter (principal); F17.210 Nicotine dependence, cigarettes, uncomplicated; W01.0XXA Fall on same level from slipping, tripping and stumbling without subsequent striking against object, initial encounter
CPT/HCPCS: 73562; 99283; J9999; L1830